=== PATIENT | female | born 1955 | race Caucasian/White ===

== ENCOUNTER → 2018-04-16 15:59 | Outpatient (CLI) | payer BC, SELFPAY ==
--- NOTE | 2018-04-16 16:01 | MM_ITS ---
MM Dig screening mamm BI w/CAD ORDERING PHYSICIAN : Joshua Branch MD PATIENT AGE: 62 years GENDER: Female COMPARISON: November 2011, July 2010, February 2009 digital bilateral mammograms as well as June 2004 and February 2009 film screen mammograms. INDICATION: ITS.REASON: Routine Screening Mammogram Taking estrogen. No new complaints. Family history. Sister with breast cancer age 54 TECHNIQUE: Standard CC and MLO images were obtained. Additional axillary cc views bilateral R2 CAD reviewed. FINDINGS: Areas of dense breast tissue is seen bilaterally most evident towards superior breast and upper outer quadrant. This Pattern is similar to multiple previous studies with no discrete new areas of significant concern. No dominant mass RIGHT BREAST:No significant change.. LEFT BREAST:No discrete new findings of significant concern. Asymmetric density at the medial left breast stable . Other areas asymmetric density appear similar to previous studies back to 2008 Follow follow-up in one year recommended IMPRESSION: Areas of dense breast tissue, bilaterally which decreased to mammography But but no new areas of significant concern on today's screening mammogram Bilateral follow-up in one year recommended... And should be emphasized/encouraged Self breast examination be encouraged. BI-RADS Category: 2 Benign Finding(s) RECOMMENDED FOLLOW-UP: 1YR 1 YEAR FOLLOW-UP (A letter has been sent to the patient regarding results of the study.)
== END ==
PROVIDERS: PCP Family Medicine; Visit Provider Nurse Practitioner Obstetrics & Gynecology
DX: Z12.31 Encounter for screening mammogram for malignant neoplasm of breast (principal)
CPT/HCPCS: 77067

== ENCOUNTER → 2018-11-04 11:57 | Outpatient (CLI) | payer BC, SELFPAY ==
--- NOTE | 2018-11-04 12:20 | XR_ITS ---
XR chest 2V HISTORY: Cough and fever ITS.REASON: BRONCHITIS ORDERING PHYSICIAN: Zoraida Pearce PATIENT AGE: 63 years COMPARISON: None FINDINGS: The cardiomediastinal silhouette and pulmonary vascularity are within normal limits. The lungs are clear without infiltrates, suspicious nodules, or pleural effusions. No acute bony abnormalities. IMPRESSION: Negative chest, no acute finding
[2018-12-26 10:10] LABS: Bordetella pertussis DNA Negative
[2018-12-26 10:11] LABS: Bordetella parapertussis DNA Negative
== END ==
PROVIDERS: Visit Provider Nurse Practitioner Family
DX: J40 Bronchitis, not specified as acute or chronic (principal)
CPT/HCPCS: 71046; 87798

== ENCOUNTER 2020-01-02 07:34 | Day surgery (SDC) | payer BC, SELFPAY ==
[2019-12-30 11:02] VITALS: BMI 25.1
[2020-01-02] VITALS (9 sets, daily range): BP systolic 120–172; BP diastolic 64–94; PULSE 62–104; RESP 18; TEMP 36.1–37; O2SAT 98–100
--- NOTE | 2020-01-02 08:08 | P.PN_ITS ---
[facility] Anesthesia Checklist - Patient Identification Patient Identification: Arm Band - Structural Data Admitted From: Home Planned Operative Procedure/s: ercp Consent for Planned Operative Procedure(s) Verified: Yes Verified Documents: Surgical Consent, History and Physical - NPO Status Verified Time NPO: 00:00 - Additional verifications Anesthesia Reactions: No - Airway Assessment C-Spine Mobility Assessed: Yes (mp2) TMJ Mobility Assessed: Yes Dentition: Good Dentition - Neurological Assessment Level of Consciousness: Awake, Alert - Anesthesia Plan Anesthesia Risk discussed: Yes Anesthesia Plan: Verified ASA Class: II Anesthesia Type: MAC [facility] History I have reviewed the patient's past medical history: Yes Medical History: Denies:: Anxiety, Cancer, Depression, Diabetes Mellitus Type 1, Diabetes Mellitus Type 2, Hyperlipidemia, Hypertension, Migraine, MRSA, Seizures *Have you ever received a pneumonia vaccine?: No *Have you received a flu vaccine this season?: No Other Medical History: Denies: Arthritis Anesthesia experience/problems:: nac Other Surgeries: Yes: Appendectomy, Cholecystectomy, Hysterectomy-Total, Tubal Ligation, Other Amputation: No Fractures: No - *Social History Smoking Status: Former smoker Alcohol Intake: current Alcohol Intake Frequency:: holidays/special occasions only Substance Use Type: denies use *Occupational Status:: employed *Travel in the last 8 weeks: None - Psychiatric History Pschychiatric History:: Denies:: Anxiety, Depression Family Hx:: Cancer, Diabetes, Heart Attack, Thyroid Disorder, Stroke, Hypertension, Hyperlipidemia, Asthma, Anemia, Coronary Artery Disease
--- NOTE | 2020-01-02 08:38 | FL_ITS ---
PROCEDURE: FL ERCP CLINICAL INDICATION: abdominal pain COMPARISON: No exams were available for comparison FINDINGS: Fluoroscopy time: 1 minutes 35 seconds. Limited images submitted from the ERCP shows contrast injected into the common bile duct which appears mildly dilated. Has been a prior cholecystectomy. No definite common bile duct stones. The pancreatic duct was not opacified. There is linear decreased density along the medial aspect of the distal common bile duct consistent with catheter/balloon the artifact IMPRESSION: Images from the ERCP show mild prominence of the common bile duct without obvious common duct stone Dictated by: Erich Antunez MD 01/13/2020 09:15 Electronically signed by Erich Antunez MD in [place] 01/13/2020 09:15
--- NOTE | 2020-01-02 09:14 | HMH.PROC ---
[facility] Procedure Note Procedure Note:: ERCP procedure Report: Endoscopic retrograde cholangiopancreatography with biliary sphincterotomy, balloon extraction and TTS balloon dilation Endoscopist: Gerardo Corral II, MD Referring Physician: Jose Carlos Lowery MD Date of Procedure: January 02, 2020 Equipment: Olympus 180 side viewing endoscope duodenoscope Sedation: MAC sedation Indication: Mrs. Mai is a 64-year-old female who is here for diagnostic/therapeutic ERCP. The patient has had recurrent epigastric abdominal pain with pressure, bloating, nausea and fullness. She reports early satiety. She also has had dysphagia and globus sensation. She does report hoarseness and scalding in the mouth. The patient did have an EGD with me in May 2017 and a subsequent ERCP in June 2017. Her EGD did show reactive gastropathy with bile reflux as well as esophageal dysmotility. She had cricopharyngeal spasm and had dilation. Her ERCP in June 2017 showed sphincter of Oddi dysfunction with some minor biliary sludge/minor choledocholithiasis. The patient did have biliary sphincterotomy. From that time on, her symptoms significantly improved and abated until more recently when she has had recurrence. The patient did previously have gallstone pancreatitis which preceded cholecystectomy for gallstones. Procedure: Prior to the procedure, a history and physical exam was performed, and patient's medications and allergies were reviewed. The risks, benefits and alternatives of the sedation and procedure were discussed with the patient. All questions were answered and informed consent was obtained. The patient was brought to the fluoroscopic radiology room. Patient identification and proposed procedure were verified by the physician and the nurse. The patient was placed in a swimmer's position between left lateral decubitus and prone position and the scope was passed under direct vision. Throughout the procedure, the patient's blood pressure, pulse, and oxygen saturations were monitored continuously. The ERCP was accomplished without difficulty. The patient tolerated the procedure well. Findings: The side-viewing duodenal scope was passed directly into the upper esophagus and advanced to the second portion of the duodenum. There was evidence of cricopharyngeal spasm and nonerosive GERD. The esophagus was dilated to 20 mm/60 [place] with a TTS hydrostatic balloon. There was bile reflux with linear reactive gastropathy of the antrum. The duodenum was normal. The ampulla was well visualized and the common bile duct was selectively cannulated with the guidewire and sphincterotome. The cholangiogram did show a 8 to 9 mm common bile duct with normal filling of the intrahepatic biliary system. There was 1 distal filling defect that was possibly an air bubble/pneumobilia. There was delayed drainage of contrast from the biliary system. Extension of the biliary sphincterotomy was performed. There was then bile and contrast extravasation from the ampulla. Next, a 9 to 12 mm sweeping balloon was placed at the hilum and swept through the biliary system twice with the passage of [place] bile and a minor amount of sludge/debris. The pancreatic duct was not cannulated intentionally. Impression: 1. Recurrent sphincter of Oddi dysfunction with minimal choledocholithiasis/minor sludge status post extension of biliary sphincterotomy and balloon sweep 2. Bile reflux with mild linear reactive gastropathy 3. 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 I would recommend treatment for visceral sensitivity with buspirone. I may also consider dietary measures, Xifaxan or fiber bowel regimen.
== END 2020-01-02 10:45 | disposition home or self-care (01) ==
PROVIDERS: PCP Family Medicine; Visit Provider Internal Medicine Gastroenterology
PROC: (CPT 43264; principal; 2020-01-02 08:30)
DX: K22.4 Dyskinesia of esophagus (principal); K21.9 Gastro-esophageal reflux disease without esophagitis; K80.50 Calculus of bile duct without cholangitis or cholecystitis without obstruction
CPT/HCPCS: 43264; 43262; 43249; 74330; C1726; Q9967

== ENCOUNTER → 2021-04-28 15:14 | Outpatient (CLI) | payer MEDICARE, BC, SELFPAY ==
[2021-04-28 16:07] LABS: Basophils % 0.7 % (0.1-2.0); Eosinophils # 0.1 K/mm3 (0.0-0.4); Eosinophils % 1.4 % (0.1-12.0); Lymphocytes # 1.7 K/mm3 (0.7-4.5); Lymphocytes % 32.5 % (10-50); Mean Corpuscular HGB Conc 35.6 g/dL (31.8-35.4); Mean Corpuscular Hemoglobin 30.8 pg (27.0-31.2); Mean Corpuscular Volume 86.3 fl (81-99); Mean Platelet Volume 8.3 fl (7.4-10.4); Monocytes # 0.3 K/mm3 (0.1-1.0); Monocytes % 5.7 % (1.7-9.3); Neutrophils # 3.1 K/mm3 (1.8-7.8); Neutrophils % 59.7 % (37.0-80.0); Platelet Count 259 K/mm3 (142-424); Red Blood Count 4.87 M/mm3 (4.20-5.40); Red Cell Distribution Width 13.1 % (11.5-17.5); White Blood Count 5.2 K/mm3 (4.8-10.8)
[2021-04-28 17:33] LABS: Erythrocyte Sedimentation Rate 14 mm/hr (0-30)
== END ==
PROVIDERS: PCP Family Medicine; Visit Provider Physician Assistant
DX: Z20.822 Contact with and (suspected) exposure to COVID-19 (principal); U07.1 COVID-19
CPT/HCPCS: 36415; 85025; 85651; U0003

== ENCOUNTER → 2021-05-11 15:13 | Outpatient (CLI) | payer MEDICARE, BC, SELFPAY ==
[2021-05-11 15:46] LABS: Basophils # 0.1 K/mm3 (0-0.2); Basophils % 0.7 % (0.1-2.0); Eosinophils # 0.1 K/mm3 (0.0-0.4); Eosinophils % 1.6 % (0.1-12.0); Hematocrit 44.2 % (37.0-47.0); Hemoglobin 15.1 g/dL (12.2-16.2); Lymphocytes # 1.8 K/mm3 (0.7-4.5); Lymphocytes % 23.9 % (10-50); Mean Corpuscular HGB Conc 34.2 g/dL (31.8-35.4); Mean Corpuscular Hemoglobin 31.7 pg (27.0-31.2); Mean Corpuscular Volume 92.6 fl (81-99); Mean Platelet Volume 8.4 fl (7.4-10.4); Monocytes # 0.4 K/mm3 (0.1-1.0); Monocytes % 5.6 % (1.7-9.3); Neutrophils # 5.1 K/mm3 (1.8-7.8); Platelet Count 282 K/mm3 (142-424); Red Blood Count 4.77 M/mm3 (4.20-5.40); Red Cell Distribution Width 12.9 % (11.5-17.5); White Blood Count 7.6 K/mm3 (4.8-10.8)
== END ==
PROVIDERS: PCP Nurse Practitioner Family; Visit Provider Nurse Practitioner Family
DX: Z20.822 Contact with and (suspected) exposure to COVID-19 (principal)
CPT/HCPCS: 85025

== ENCOUNTER → 2021-11-16 16:25 | Outpatient (CLI) | payer MEDICARE, BC, SELFPAY ==
[2021-11-16 17:43] LABS: Blood Urea Nitrogen 29 mg/dl (7-17); Estimated Glomerular Filt Rate 55 ml/min (>60); GFR (African American) 67 ML/MIN (>60)
== END ==
PROVIDERS: Visit Provider Family Medicine
DX: Z01.812 Encounter for preprocedural laboratory examination (principal); K76.9 Liver disease, unspecified
CPT/HCPCS: 36415; 82565; 84520

== ENCOUNTER → 2021-11-17 08:04 | Outpatient (CLI) | payer MEDICARE, BC, SELFPAY ==
--- NOTE | 2021-11-17 08:10 | CT_ITS ---
FINAL REPORT TECHNIQUE: Axial CT images of the abdomen and pelvis were obtained before and after the administration of IV contrast. Oral contrast was administered.This study was performed with techniques to keep radiation doses as low as reasonably achievable (ALARA). Individualized dose reduction techniques using automated exposure control or adjustment of mA and/or kV according to the patient''s size were employed. CLINICAL HISTORY: LIVER LESION COMPARISON: May 30, 2017 FINDINGS: Abdomen: There is mild right lung base atelectasis. The heart is normal in size. The less than 1 cm mass in the lateral right liver dome from the prior exam is not seen today. No liver mass is identified. There are postoperative changes from cholecystectomy. There is mild biliary ductal dilatation which may be due to post cholecystectomy change. . The spleen is unremarkable. No adrenal masses present. The pancreas has an unremarkable appearance. The kidneys enhance normally. The aorta is normal in caliber. There is no free fluid or adenopathy. No mass or abnormal fluid collection is seen. Precontrast images demonstrate no evidence of nephrolithiasis. Pelvis: The appendix is not visualized. The urinary bladder is unremarkable. No inflammatory process is seen. There is no evidence of mass or adenopathy. There is no evidence of bowel obstruction. There is a moderate amount of retained stool. There are postoperative changes from hysterectomy. IMPRESSION: Previously identified right liver dome mass is not identified today. Reviewed, Interpreted and Dictated by Kristian Kennedy III, MD Transcribed by Jennifer Hutchison Authenticated by Kristian Kennedy III, MD on 11/17/2021 10:26:28 AM [facility]
== END ==
PROVIDERS: PCP Nurse Practitioner Family; Visit Provider Family Medicine
DX: K76.9 Liver disease, unspecified (principal)
CPT/HCPCS: 74178; Q9967

== ENCOUNTER → 2023-06-22 14:41 | Outpatient (CLI) | payer MEDICARE, BC, SELFPAY | PROVIDERS: PCP Family Medicine; Visit Provider Internal Medicine Gastroenterology | DX: K52.9 Noninfective gastroenteritis and colitis, unspecified (principal); R14.0 Abdominal distension (gaseous); R15.2 Fecal urgency; R15.9 Full incontinence of feces ==

== ENCOUNTER → 2023-06-25 12:55 | Outpatient (CLI) | payer MEDICARE, BC, SELFPAY ==
[2023-07-02 13:20] LABS: Pancreatic Elastase, Fecal 70 (>200)
== END ==
PROVIDERS: PCP Family Medicine; Visit Provider Internal Medicine Gastroenterology
DX: K52.9 Noninfective gastroenteritis and colitis, unspecified (principal); R14.0 Abdominal distension (gaseous); R15.2 Fecal urgency; R15.9 Full incontinence of feces
CPT/HCPCS: 82656

== ENCOUNTER → 2023-07-09 16:00 | Outpatient (CLI) | payer MEDICARE, BC, SELFPAY ==
--- NOTE | 2023-07-09 16:00 | MM_ITS ---
PROCEDURE INFORMATION: Exam: MG Bilateral Screening 3D Mammography Exam date and time: 07/09/2023 3:50 PM Age: 68 years old Clinical indication: Screening examination TECHNIQUE: Imaging protocol: Bilateral Screening tomosynthesis and 2D mammography including computer-aided detection (CAD) when performed. COMPARISON: 1. MG SCBI MM Dig screening mamm BI w/CAD 04/16/2018 4:11 PM 2. MG DMSB DIGITAL MAMM-SCREEN BILATERAL 11/10/2011 10:03 AM FINDINGS: MAMMOGRAPHY: Breast composition: The breasts are heterogeneously dense, which may obscure small masses. Mass: None. Architectural distortion: None. Calcifications: No suspicious calcifications. Asymmetric density: None. Skin thickening: None. Axillary adenopathy: None. IMPRESSION: No mammographic evidence of malignancy. Annual screening is recommended unless otherwise clinically indicated. ASSESSMENT: BI-RADS Category 1: Negative
== END ==
PROVIDERS: PCP Family Medicine; Visit Provider Nurse Practitioner Obstetrics & Gynecology
DX: Z12.31 Encounter for screening mammogram for malignant neoplasm of breast (principal)
CPT/HCPCS: 77063; 77067

== ENCOUNTER 2023-10-16 12:11 | Outpatient (CLI) | payer MEDICARE, BC, SELFPAY ==
[2023-10-16 12:17] LABS: Adenovirus F 40/41, stool Not Detected (NotDetected); Astrovirus Not Detected (NotDetected); Campylobacter Not Detected (NotDetected); Clostridium Difficile A/B, PCR Not Detected (NotDetected); Cryptosporidium Not Detected (NotDetected); Cyclospora Cayetanesis Not Detected (NotDetected); Entamoeba histolytica Not Detected (NotDetected); Enteroaggregative E coli Not Detected (NotDetected); Enteropathogenic E coli Not Detected (NotDetected); Enterotoxigenic E coli Not Detected (NotDetected); Giardia lamblia Not Detected (NotDetected); Norovirus Not Detected (NotDetected); Plesimonas Shigalloides, PCR Not Detected (NotDetected); Rotavirus A Not Detected (NotDetected); Salmonella, PCR Not Detected (NotDetected); Sapovirus Not Detected (NotDetected); Shiga-like toxin E coli Not Detected (NotDetected); Shigella Enterovasive E coli Not Detected (NotDetected); Vibrio Cholerae Not Detected (NotDetected); Vibrio, PCR Not Detected (NotDetected); Yersinia Entercolitica, PCR Not Detected (NotDetected)
== END 2023-10-16 23:59 ==
LOC: LAB 12:12
PROVIDERS: PCP Family Medicine; Visit Provider Nurse Practitioner Family
DX: R19.7 Diarrhea, unspecified (principal); R14.0 Abdominal distension (gaseous)
CPT/HCPCS: 87506

== ENCOUNTER 2024-06-03 09:30 | Outpatient (POV) | payer MEDICARE, BC, SELFPAY | END 2024-06-03 23:59 | disposition home or self-care (01) | LOC: SC 09:31 | PROVIDERS: Visit Provider Dermatology | DX: Z00.00 Encounter for general adult medical examination without abnormal findings (principal) ==

== ENCOUNTER 2024-10-20 10:28 | Day surgery (SDC) | payer MEDICARE, BC, SELFPAY ==
[2024-10-20 11:04] VITALS: BP 137/69; PULSE 57; RESP 18; TEMP 36.7; O2SAT 98
[2024-10-20 11:11] VITALS: BMI 24.7
[2024-10-20] MEDS: LACTATED RINGERS 1000ML 1,000 ML 50 ML IV (11:14)
--- NOTE | 2024-10-20 11:30 | P.PNANES_ITS ---
[facility] Disclaimer: The information contained in this section may have been updated after the patient was seen, as this information can be updated by other users. Medical History Hypertension Exocrine pancreatic insufficiency Colitis Hot flashes, menopausal Surgical History History of back surgery History of cholecystectomy H/O: hysterectomy Family History Sister Cancer Mother Osteoporosis Grandmother Osteoporosis Other Family history of COPD (chronic obstructive pulmonary disease) Social History (Updated 10/20/24 @ 11:09 by Ruma Macedo RN) Smoking Status: Former smoker alcohol intake: current alcohol intake frequency: holidays/special occasions only substance use type: denies use current occupational status: employed and retired Travel in the last 8 weeks: None caffeine: Yes Have you lived/traveled outside US in past 30 days?: No Contact w/someone who lives/traveled outside US past 30 days?: No Exposure to someone with infectious disease in past 14 days?: No Do you have a fever (greater than 100.4 F or 38 C)?: No Have you tested positive for COVID-19: Yes Exposed to someone with COVID-19 in past 14 days?: No Do you have a sore throat?: No Do you have a cough?: No Do you have any weakness?: No Are you experiencing any nausea/vomitting?: No Do you have any diarrhea?: No Are you experiencing any unusual bleeding?: No Do you have any muscle aches/pain?: No Do you have any abdominal pain?: No Are you experiencing loss of taste or smell?: No [facility] Anesthesia Checklist Patient Identification Patient Identification: Arm Band Structural Data Admitted From: Home Planned Operative Procedure/s: EGD/Colonoscopy Consent for Planned Operative Procedure(s) Verified: Yes Verified Documents: Surgical Consent and History and Physical NPO Status Verified Time NPO: 04:00 (finished prep) Additional verifications Anesthesia Reactions: No Airway Assessment Mallampati Score:: Class II C-Spine Mobility Assessed: Yes TMJ Mobility Assessed: Yes Dentition: Good Dentition Neurological Assessment Level of Consciousness: Awake, Alert and Appropriate Anesthesia Plan Anesthesia Risk discussed: Yes Anesthesia Plan: Verified ASA Class: II Anesthesia Type: MAC
--- NOTE | 2024-10-20 13:04 | EXP.HP ---
History of Present Illness *Admission Date: 10/20/24 *Reason for visit:: Diarrhea *History of present illness: Mrs. Mai is a 69-year-old female with chronic diarrhea who is here for diagnostic colonoscopy. The examination is deemed medically necessary for diagnostic colonoscopy. The patient has been seen, interviewed and examined prior to the procedure by both myself and the anesthesia provider. [facility] Disclaimer: The information contained in this section may have been updated after the patient was seen, as this information can be updated by other users. Medical History Hypertension Exocrine pancreatic insufficiency Colitis Hot flashes, menopausal Surgical History History of back surgery History of cholecystectomy H/O: hysterectomy Family History Sister Cancer Mother Osteoporosis Grandmother Osteoporosis Other Family history of COPD (chronic obstructive pulmonary disease) Social History (Updated 10/20/24 @ 11:09 by Ruma Macedo RN) Smoking Status: Former smoker alcohol intake: current alcohol intake frequency: holidays/special occasions only substance use type: denies use current occupational status: employed and retired Travel in the last 8 weeks: None caffeine: Yes Have you lived/traveled outside US in past 30 days?: No Contact w/someone who lives/traveled outside US past 30 days?: No Exposure to someone with infectious disease in past 14 days?: No Do you have a fever (greater than 100.4 F or 38 C)?: No Have you tested positive for COVID-19: Yes Exposed to someone with COVID-19 in past 14 days?: No Do you have a sore throat?: No Do you have a cough?: No Do you have any weakness?: No Are you experiencing any nausea/vomitting?: No Do you have any diarrhea?: No Are you experiencing any unusual bleeding?: No Do you have any muscle aches/pain?: No Do you have any abdominal pain?: No Are you experiencing loss of taste or smell?: No Other Medical History Have you received the Flu Vaccine for this season: No Have you received the Pneumonia Vaccine: No Review of Systems Review of Systems Review of systems (narrative): Negative *Cardiovascular Comments: Negative *Gastrointestinal Comments: Negative *Genitourinary Comments: Negative *Musculoskeletal Comments: Negative *Neurologic Comments: Negative Meds Home Medications and Allergies Home Medications ?Medication ?Instructions ?Recorded ?Confirmed ?Type budesonide 3 mg 3 mg PO DAILY 07/23/23 10/20/24 History capsule,delayed,extended release [id number]-[id number]-hivpmtd 2 cap PO TID 07/23/23 10/20/24 History 36,000-114,000-180,000 unit capsule,delay rel (Creon) lisinopril 10 mg tablet 10 mg PO DAILY 07/23/23 10/20/24 History estradiol 1 mg tablet See Rx Instructions .Route 09/02/24 10/20/24 Rx .COMPLEX #90 tabs sodium,potassium,mag sulfates 17.5 See Rx Instructions PO .COMPLEX 10/08/24 10/20/24 Rx gram-3.13 gram-1.6 gram oral soln #354 mL (Suprep Bowel Prep Kit) New Prescriptions to Start Prescriptions: Allergies Allergy/AdvReac Type Severity Reaction Status Date / Time Penicillins (PENICILLINS) Allergy Severe Anaphylaxis Verified 10/20/24 11:03 phenobarbital (PHENOBARBITAL) Allergy Unknown Fainting Verified 10/20/24 11:03 Sulfa (Sulfonamide Allergy Unknown Rash Verified 10/20/24 11:03 Antibiotics) (SULFA (SULFONAMIDE ANTIBIOTICS)) Exam Data for Last 24 hours Vital signs and Labs for Last 24 Hours: Temp Pulse Resp BP Pulse Ox O2 Del Method 98.1 F 57 L 18 137/69 98 Room Air 10/20/24 11:04 10/20/24 11:04 10/20/24 11:04 10/20/24 11:04 10/20/24 11:04 10/20/24 11:04 I & O for Last 24 hours: Intake & Output 10/17/24 10/18/24 10/19/24 10/20/24 23:59 23:59 23:59 23:59 Weight 140 lb *Routine HEENT Exam Head: Present normocephalic Eye: Present EOMI and PERRL ENT: Present mucous membranes moist *Routine Neck Exam Neck: Present supple *Routine Respiratory Exam Respiratory: Present CTA bilaterally *Routine Cardiovascular Exam Cardiovascular: Present RRR *Routine Abdominal Exam Abdominal: Present soft and normoactive bowel sounds; Absent tenderness *Routine Rectal Exam Rectal:: deferred *Routine Genitalia Exam Genitalia:: deferred *Routine Extremities Exam Extremities: Absent cyanosis, clubbing or edema *Routine Skin Exam Skin: Present warm; Absent rash *Routine Neurological Exam Neurological: Present alert and oriented X3 Assessment and Plan *Assessment and plan (1) Chronic diarrhea: Status: Acute Category: Medical Code(s): K52.9 - Noninfective gastroenteritis and colitis, unspecified (2) Microscopic colitis: Status: Acute Category: Medical Code(s): K52.839 - Microscopic colitis, unspecified Plan A/P: 1. Chronic diarrhea?markedly worsened with change in bowel habits is the preprocedural diagnosis. The patient will be anesthetized/sedated using MAC sedation. The patient has been seen and examined. Cardiac and lung assessment prior to the examination is stable. Proceed with planned diagnostic colonoscopy
--- NOTE | 2024-10-20 13:06 | HMH.PROCNOTE ---
[facility] Procedure Note Date: 10/20/24 Time: 13:31 Procedure Note:: Colonoscopy Procedure Report: Colonoscopy with cold biopsies Endoscopist: Gerardo Corral II, MD Referring physician: Nick Rodriguez MD Date of Procedure: October 20, 2024 Equipment: Olympus 190 variable stiffness pediatric colonoscope Sedation: MAC sedation Indication: Mrs. Mai is a 69-year-old female who is a long-term patient here for diagnostic colonoscopy. The patient does have chronic diarrhea which is multifactorial. She does have EPI established by low fecal elastase levels. She was having 15-20 bowel movements daily and after addition of Creon, she is down to 2-3 bowel movements daily. She also had microscopic/lymphocytic colitis. She was placed on budesonide and this significantly helped. When we weaned off of the budesonide, her diarrhea returned and she is now on this as maintenance therapy. The patient still reports having daily watery and loose stools without form. She does get some epigastric abdominal pain. Most of her diarrhea is postprandial. She did have a reaction to amitriptyline in the past. When she saw me in the office in [place], her PCR testing and fecal calprotectin were normal. Her last colonoscopy was more than 5 years ago. She does have a grandmother with gastric cancer. She does get just a little gassiness and bloating. She reports no blood with her bowel movements but does note mucus. She does state that she was on an IBS drug years ago. She has had former cholecystectomy. Her bowel movements are often dark. She was recently evaluated in the office and had hypokalemia which was felt to be related to her diarrhea. Additionally, the patient does have a history of of sphincter of Oddi dysfunction and had ERCP with me in December 2019. Procedure: Prior to the procedure, a history and physical exam was performed, and patient's medications and allergies were reviewed. The risks, benefits and alternatives of the sedation and procedure were discussed with the patient. All questions were answered and informed consent was obtained. The patient was brought to the procedure room. Patient identification and proposed procedure were verified by the physician and the nurse. The patient was placed in a left lateral decubitus position and the scope was passed under direct vision. Throughout the procedure, the patient's blood pressure, pulse, and oxygen saturations were monitored continuously. The colonoscopy was accomplished without difficulty. The patient tolerated the procedure well. Findings: On digital rectal examination there was normal rectal tone. There were no external hemorrhoids. The colonoscope was introduced through the anal canal to the rectum and advanced to the cecum. The ileocecal valve and appendiceal orifice were identified. The scope was advanced a short distance into the ileum which appeared grossly normal. The scope was then withdrawn into the colon. The cecum, ascending, transverse, descending, sigmoid and rectum were grossly normal. There was a very mild reticular pattern to the mucosa lining but was otherwise normal. There were no mucosal abnormalities identified. Random biopsies were taken from the right and from the left colon to rule out microscopic/lymphocytic colitis. Upon retroflexion within the rectum there were grade 1-2 internal hemorrhoids. The preparation was excellent throughout with [place] Preparation Score of 9. The cecal time was 10 minutes. Impression: 1. Normal colonoscopy with intubation of the terminal ileum Plan: I will follow-up the biopsies. If there is still evidence of microscopic colitis, I would consider increasing budesonide dosage. If the biopsies are normal, I would even consider stopping budesonide. I am going to add colestipol at bedtime and tricyclic medication because of her visceral pain/spasm (for neuromodulation) and IBS diarrhea.
[2024-10-20 13:09] VITALS: O2SAT 98
--- NOTE | 2024-10-20 13:17 | P.PCN_ITS ---
[facility] Procedure Note Date: 10/20/24 Time: 13:17 Procedure Note:: Upper Endoscopy Procedure Report: Esophagogastroduodenoscopy with cold biopsies Endoscopost: Gerardo Corral II, MD Referring Physician: Nick Rodriguez MD Date of Procedure: October 20, 2024 Equipment: Olympus GIF 190 standard upper endoscope Sedation: MAC sedation Indications: Mrs. Mai is a 69-year-old female who is a long-term patient here for diagnostic upper endoscopy. She does have dyspepsia/epigastric abd ominal pain. Additionally, the patient does have a history of of sphincter of Oddi dysfunction and had ERCP with me in December 2019. She has chronic diarrhea. She does take Creon for EPI. Procedure: Prior to the procedure, a history and physical exam was performed, and patient's medications and allergies were reviewed. The risks, benefits and alternatives of the sedation and procedure were discussed with the patient. All questions were answered and informed consent was obtained. The patient was brought to the procedure room. Patient identification and proposed procedure were verified by the physician and the nurse. The patient was placed in a left lateral decubitus position and the scope was passed under direct vision. Throughout the procedure, the patient's blood pressure, pulse, and oxygen saturations were monitored continuously. The upper GI endoscopy was accomplished without difficulty. The patient tolerated the procedure well. Findings: The scope was passed directly into the upper esophagus and advanced to the third portion of the duodenum. The post bulbar duodenum and duodenal bulb were normal with normal mucosa and conniventes. The ampulla was normal in appearance. The scope was withdrawn through a normal duodenal bulb and pylorus into the stomach. There was moderate to marked bile reflux with mild to moderate linear reactive gastropathy of the antrum and body. There was some pylorospasm identified. Cold biopsies were taken from the antrum. Upon retroflexion there was a very small sliding 1 to 2 cm hiatal hernia. The scope was then withdrawn into the esophagus. There was no evidence of reflux esophagitis or Scott's. The remainder of the esophageal mucosa was normal. Impression: 1. Bile reflux with mild to moderate linear reactive gastropathy with mild pylorospasm Plan: I will follow-up the biopsies. I am going to place her on a bile acid sequestrant (colestipol) which should help with her diarrhea as well. I would also consider neuromodulation because of her visceral sensitivity/functional abdominal pain (i.e. pylorospasm). I will proceed with diagnostic colonoscopy.
[2024-10-20 13:38] VITALS: BP 108/53; PULSE 66; RESP 16; TEMP 36.5; O2SAT 97
[2024-10-20 13:48] VITALS: BP 107/54; PULSE 60; RESP 16; O2SAT 99
[2024-10-20 13:58] VITALS: BP 132/80; PULSE 62; RESP 18; O2SAT 100
[2024-10-20 14:08] VITALS: BP 148/69; PULSE 54; RESP 16; O2SAT 100
== END 2024-10-20 14:15 | disposition home or self-care (01) ==
PROVIDERS: PCP Family Medicine; Visit Provider Internal Medicine Gastroenterology
PROC: 0DJ08ZZ Inspection of Upper Intestinal Tract, Via Natural or Artificial Opening Endoscopic (ICD-10-PCS; CPT 45378; principal; 2024-10-20 12:30)
DX: R10.9 Unspecified abdominal pain (principal); K31.3 Pylorospasm, not elsewhere classified; K64.8 Other hemorrhoids; R10.13 Epigastric pain; K83.4 Spasm of sphincter of Oddi; K52.9 Noninfective gastroenteritis and colitis, unspecified; K44.9 Diaphragmatic hernia without obstruction or gangrene; K31.9 Disease of stomach and duodenum, unspecified
CPT/HCPCS: 43239; 45380; J7120

== ENCOUNTER 2025-02-10 10:09 | Outpatient (CLI) | payer MEDICARE, BC, SELFPAY ==
--- OUTSIDE RECORDS SUMMARY | 2025-02-10 10:12 | XMS_ITS ---
Author Organization Unknown Results OrderDate OrderTestName ResultName ResultDate Value Units Range AbnormalFlag ResultStatus ObservationNotes TestCode ResultCode DateRecorded AccessionNumber DiagnosticSectionCode DiagnosticSectionName Sequence Interpretation 07/21/2024 00:00:00 P-TSH TSH [id number]:00:00 2.07 mU/L 0.43- 5.25 - mU/L Reviewed Britney Pearce 07/22/2024 9:35:16 AM > I spoke with pt andreported results P-TSH 07/21/2024 00:00: 00:00:32F-SgugypCzogzi0652-83ElfikdIjkkkx7782-76-32B71:00:0015.8u/L 13.0-60.0 - u/LRevieweBritney Herrera 07/22/2024 11:28:24 AM > I spoke with pt and reported results Coding P-Lipase 07/21/2024 00:00:00109/20/2023 00:00:00P-Comprehensive Metabolic Panel (CMP)eGFR by Adhqnzuzen6583-81-53R68:00:0099mL/min/1.73m2>59 - mL/min/1.98s1Lifcizot Britney Pearce 07/22/2024 9:11:25 AM >no answer when phoned Britney Pearce 07/22/2024 9:34:16 AM > will start PO K+ which she has at home Coding P-Comprehensive Metabolic Pa katelynn (CMP) 07/21/2024 00:00:00109/20/2023 00:00:00P-Comprehensive Metabolic Panel (CMP) Dzzxxpn0297-77-18Y54:00:006.2g/dL6.0-8.3 - g/dLReBritney Andino 07/22/2024 9:11:25 AM >no answer when phoned Britney Pearce 07/22/2024 9:34: 16 AM > will start PO K+ which she has at home Coding P-Comprehensive Metabolic Pa katelynn (CMP) 07/21/2024 00:00:00109/20/2023 00:00:00P-Comprehensive Metabolic Panel (CMP) Yaoexz3272-18-06P63:00:95633thgg/Q854-057 - mmol/LRBritney Plaza 07/22/2024 9:11:25 AM >no answer when phoned Britney Pearce 07/22/2024 9:34: 16 AM > will start PO K+ which she has at home Coding P-Comprehensive Metabolic Pa katelynn (CMP) 07/21/2024 00:00:00109/20/2023 00:00:00P-Comprehensive Metabolic Panel (CMP) Ukuczbzee5487-81-46P47:00:003.3mmol/L3.5-5.3 - mmol/LLBritney Herndon 07/22/2024 9:11:25 AM >no answer when phoned Britney Pearce 07/22/2024 9:34: 16 AM > will start PO K+ which she has at home Coding P-Comprehensive Metabolic Pa katelynn (CMP) 07/21/2024 00:00:00109/20/2023 00:00:00P-Comprehensive Metabolic Panel (CMP) Ticxjpj4335-58-17W61:00:0081mg/dL65-99 - mg/dLBritney Herndon 07/22/2024 9:11:25 AM >no answer when phoned Britney Pearce 07/22/2024 9:34: 16 AM > will start PO K+ which she has at home Coding P-Comprehensive Metabolic Pa katelynn (CMP) 07/21/2024 00:00:00109/20/2023 00:00:00P-Comprehensive Metabolic Panel (CMP) Jowyvyfuyv8010-30-00X52:00:000.56mg/dL0.50-1.00 - mg/dLBritney Herndon 07/22/2024 9:11:25 AM >no answer when phoned Britney Pearce 07/22/2024 9:34: 16 AM > will start PO K+ which she has at home Coding P-Comprehensive Metabolic Pa katelynn (CMP) 07/21/2024 00:00:00109/20/2023 00:00:00P-Comprehensive Metabolic Panel (CMP)CO2 1800-46-64C71:00:0026mmol/L22-32 - mmol/LRBritney Plaza 07/22/2024 9:11:25 AM >no answer when phoned Britney Pearce 07/22/2024 9:34:16 AM > will start PO K+ which she has at home Coding P-Comprehensive Metabolic Pa katelynn (CMP) 07/21/2024 00:00:00109/20/2023 00:00:00P-Comprehensive Metabolic Panel (CMP) Ovqsyhig0994-54-22R54:00:57538umyr/L97-108 - mmol/LRBritney Plaza 07/22/2024 9:11:25 AM >no answer when phoned Britney Pearce 07/22/2024 9:34: 16 AM > will start PO K+ which she has at home Coding P-Comprehensive Metabolic Pa katelynn (CMP) 07/21/2024 00:00:00109/20/2023 00:00:00P-Comprehensive Metabolic Panel (CMP) Ysbzjnv8928-81-47M94:00:008.8mg/dL8.6-10.4 - mg/dLReBritney Andino 07/22/2024 9:11:25 AM >no answer when phoned Britney Pearce 07/22/2024 9:34: 16 AM > will start PO K+ which she has at home Coding P-Comprehensive Metabolic Pa katelynn (CMP) 07/21/2024 00:00:00109/20/2023 00:00:00P-Comprehensive Metabolic Panel (CMP)BUN 8273-37-33T75:00:0010mg/dL8-23 - mg/dLReBritney Andino 07/22/2024 9:11:25 AM >no answer when phoned Britney Pearce 07/22/2024 9:34:16 AM > will start PO K+ which she has at home Coding P-Comprehensive Metabolic Pa katelynn (CMP) 07/21/2024 00:00:00109/20/2023 00:00:00P-Comprehensive Metabolic Panel (CMP) Bilirubin, Jdoxf2608-20-74O85:00:000.4mg/dL<0.2-1.2 - mg/dLReviewed Britney Pearce 07/22/2024 9:11:25 AM >no answer when phoned Britney Pearce 07/22/2024 9:34:16 AM > will start PO K+ which she has at home Coding P-Comprehensive Metabolic Pa katelynn (CMP) 07/21/2024 00:00:00109/20/2023 00:00:00P-Comprehensive Metabolic Panel (CMP)AST (SGOT)9650-76-80D72:00:0011IU/L<5-40 - IU/LRevieBritney Garcia 07/22/2024 9:11:25 AM >no answer when phoned Britney Pearce 07/22/2024 9:34:16 AM > will start PO K+ which she has at home Coding P-Comprehensive Metabolic Pa katelynn (CMP) 07/21/2024 00:00:00109/20/2023 00:00:00P-Comprehensive Metabolic Panel (CMP)ALT (SGPT)7454-69-15N74:00:0012IU/L<5-47 - IU/LRevBritney Bell 07/22/2024 9:11:25 AM >no answer when phoned Britney Pearce 07/22/2024 9:34:16 AM > will start PO K+ which she has at home Coding P-Comprehensive Metabolic Pa katelynn (CMP) 07/21/2024 00:00:00109/20/2023 00:00:00P-Comprehensive Metabolic Panel (CMP) Alkaline Hmpjpikkkjr4053-52-89T14:00:0055IU/L35-121 - IU/LRevBritney New 07/22/2024 9:11:25 AM >no answer when phoned Griselda Pearceine 07/22/2024 9:34:16 AM > will start PO K+ which she has at home Coding P-Comprehensive Metabolic Pa katelynn (CMP) 07/21/2024 00:00:00109/20/2023 00:00:00P-Comprehensive Metabolic Panel (CMP) Fjktruv6906-94-28F21:00:004.0g/dL3.5-5.3 - g/dLReGonzaloLinnea resendizharine 07/22/2024 9:11:25 AM >no answer when phoned Linnea Pearceharine 07/22/2024 9:34: 16 AM > will start PO K+ which she has at home Coding P-Comprehensive Metabolic Pa katelynn (CMP) 07/21/2024 00:00:00109/20/2023 00:00:00P-Comprehensive Metabolic Panel (CMP)A/G Ubgar5545-96-72X70:00:001.81.1-2.5 -KatrinaBritney 07/22/2024 9:11:25 AM >no answer when phoned Linnea Pearceharine 07/22/2024 9:34:16 AM > will start PO K+ which she has at home Coding P-Comprehensive Metabolic Pa katelynn (CMP) 07/21/2024 00:00:00109/20/2023 00:00:02L-AvgwhflYtweqdv9490-69XifpagiScbacut7826-01-79D31:00:0037U/L 28-100 - U/LRevieweNuriaLinnea barbaBritney 07/22/2024 9:34:57 AM > I spoke with pt and reported results Coding P-Amylase 07/21/2024 00:00:00109/20/2023 00:00:00CBC Venipuncture (in house)tre 8077-31-23Q56:00:62618621 - 400ReLuz Elena Amras 07/21/2024 12:30:28 PM > , Provider reviewed results while patient in office.PortiaBritney 07/21/2024 3:07:22 PM > Coding CBC Venipuncture (in house) 07/21/2024 00:00:00109/20/2023 00:00:00CBC Venipuncture (in house)[facility] 6544-69-99K70:00:0033.631 - 38ReviewedKing,[facility] 07/21/2024 12:30:28 PM > , Provider reviewed results while patient in office.Britney Pearce 07/21/2024 3:07:22 PM > Coding CBC Venipuncture (in house) 07/21/2024 00:00:00109/20/2023 00:00:00CBC Venipuncture (in house)[facility] 6442-31-64T11:00:0030.625 - 35ReviewedKvan,[facility] 07/21/2024 12:30:28 PM > , Provider reviewed results while patient in office.Britney Pearce 07/21/2024 3:07:22 PM > Coding CBC Venipuncture (in house) 07/21/2024 00:00:00109/20/2023 00:00:00CBC Venipuncture (in house)mcv 0068-09-99Q39:00:0091.275 - 100RevieweEleno,[facility] 07/21/2024 12:30:28 PM > , Provider reviewed results while patient in office.Britney Pearce 07/21/2024 3:07:22 PM > Coding CBC Venipuncture (in house) 07/21/2024 00:00:00109/20/2023 00:00:00CBC Venipuncture (in house)[facility] 4934-30-48F59:00:0042.835 - 55RevieweEleno,[facility] 07/21/2024 12:30:28 PM > , Provider reviewed results while patient in office.Britney Pearce 07/21/2024 3:07:22 PM > Coding CBC Venipuncture (in house) 07/21/2024 00:00:00109/20/2023 00:00:00CBC Venipuncture (in house)hgb 4330-02-46Y68:00:0014.411.5 - 16.5RevieweEleno,[facility] 07/21/2024 12:30:28 PM > , Provider reviewed results while patient in office.Britney Pearce 07/21/2024 3:07:22 PM > Coding CBC Venipuncture (in house) 07/21/2024 00:00:00109/20/2023 00:00:00CBC Venipuncture (in house)rbc 7956-48-00X38:00:004.693.5 - 5.5ReviewedKing,Luz Elena 07/21/2024 12:30:28 PM > , Provider reviewed results while patient in office.Britney Pearce 07/21/2024 3:07:22 PM > Coding CBC Venipuncture (in house) 07/21/2024 00:00:00109/20/2023 00:00:00CBC Venipuncture (in house)gran 7087-39-98U63:00:0068.8%35 - 80ReviewedKing,[facility] 07/21/2024 12:30:28 PM > , Provider reviewed results while patient in office.Britney Pearce 07/21/2024 3:07:22 PM > Coding CBC Venipuncture (in house) 07/21/2024 00:00:00109/20/2023 00:00:00CBC Venipuncture (in house)mid 7512-62-40N32:00:006.1%2 - 15ReviewedKing,Luz Elena 07/21/2024 12:30:28 PM > , Provider reviewed results while patient in office.Britney Pearce 07/21/2024 3:07:22 PM > Coding CBC Venipuncture (in house) 07/21/2024 00:00:00109/20/2023 00:00:00CBC Venipuncture (in house)lymph 8835-35-22Z38:00:0025.1%15 - 50ReviewedKing,[facility] 07/21/2024 12:30:28 PM > , Provider reviewed results while patient in office.Britney Pearce 07/21/2024 3:07:22 PM > Coding CBC Venipuncture (in house) 07/21/2024 00:00:00109/20/2023 00:00:00CBC Venipuncture (in house)wbc 2111-90-09Q04:00:006.43.5 - 10ReviewedKing,Luz Elena 07/21/2024 12:30:28 PM > , Provider reviewed results while patient in office.Britney Pearce 07/21/2024 3:07:22 PM > Coding CBC Venipuncture (in house) 07/21/2024 00:00: 00:00:00CBC Venipuncture (in house)[facility] 6052-19-08C45:00:27139635 - 400ReLong Jenni 01/05/2025 12:59:43 PM >Britney Pearce 01/05/2025 01:56:04 PM >reviewed Coding CBC Venipuncture (in house) 01/05/2025 00:00: 00:00:00CBC Venipuncture (in house)[facility] 9176-29-14A95:00:0034.531 - 38ReLong Jenni 01/05/2025 12:59:43 PM >Britney Pearce 01/05/2025 01:56:04 PM >reviewed Coding CBC Venipuncture (in house) 01/05/2025 00:00: 00:00:00CBC Venipuncture (in house)[facility] 3845-79-50Q82:00:0031.025 - 35ReJenni Alves 01/05/2025 12:59:43 PM >Britney Pearce 01/05/2025 01:56:04 PM >reviewed Coding CBC Venipuncture (in house) 01/05/2025 00:00: 00:00:00CBC Venipuncture (in house)[facility] 5748-90-92D84:00:0090.075 - 100ReLong Jenni 01/05/2025 12:59:43 PM >Britney Pearce 01/05/2025 01:56:04 PM >reviewed Coding CBC Venipuncture (in house) 01/05/2025 00:00: 00:00:00CBC Venipuncture (in house)[facility] 2798-12-67G80:00:0039.735 - 55ReLong Jenni 01/05/2025 12:59:43 PM >Britney Pearce 01/05/2025 01:56:04 PM >reviewed Coding CBC Venipuncture (in house) 01/05/2025 00:00: 00:00:00CBC Venipuncture (in house)hgb 8694-26-57B97:00:0013.711.[facility] 01/05/[facility]25 12:59:43 PM >Britney Pearce 01/05/2025 01:56:04 PM >reviewed Coding CBC Venipuncture (in house) 01/05/2025 00:00: 00:00:00CBC Venipuncture (in house)[facility] 5268-65-60A50:00:004.413.5 - 5.5[facility] 01/05/2025 12:59:43 PM >Britney Pearce 01/05/2025 01:56:04 PM >reviewed Coding CBC Venipuncture (in house) 01/05/2025 00:00: 00:00:00CBC Venipuncture (in house)[facility] 4459-44-48B52:00:0064.735 - 80[facility] 01/05/2025 12:59:43 PM >Britney Pearce 01/05/2025 01:56:04 PM >reviewed Coding CBC Venipuncture (in house) 01/05/2025 00:00: 00:00:00CBC Venipuncture (in house)[facility] 5359-22-19Y64:00:007.72 - 15[facility] 01/05/2025 12:59:43 PM >Britney Pearce 01/05/2025 01:56:04 PM >reviewed Coding CBC Venipuncture (in house) 01/05/2025 00:00: 00:00:00CBC Venipuncture (in house)[facility] 9978-38-96S52:00:0027.615 - 50[facility] 01/05/2025 12:59:43 PM >Britney Pearce 01/05/2025 01:56:04 PM >reviewed Coding CBC Venipuncture (in house) 01/05/2025 00:00: 00:00:00CBC Venipuncture (in house)wbc 6662-74-44C22:00:004.23.5 - 10RevieweJenni Alvarado 01/05/2025 12:59:43 PM >Britney Pearce 01/05/2025 01:56:04 PM >reviewed Coding CBC Venipuncture (in house) 01/05/2025 00:00: 00:00:00P-Lyme Disease (B. burgodorferi), IgG/IgM, PAUL, SerumB burgdorferi (Lyme Disease) CdI0488-24-54T73:00:00NegativeNegative -Britney Russell 01/07/2025 01:25:28 PM >no answer when phoneBritney Herrera 01/12/2025 09:32:07 AM >left phone message for return Radha Britney 01/23/2025 02:53:52 PM >no answer when phoned Coding P-Lyme Disease (B. burgodorf edu), IgG/IgM, PAUL, Serum 01/05/2025 00:00: 00:00:00P-Lyme Disease (B. burgodorferi), IgG/IgM, PAUL, SerumB burgdorferi (Lyme Disease) ZwO4952-77-89Q01:00:00NegativeNegative -Britney Russell 01/07/2025 01:25:28 PM >no answer when phoneBritney Herrera 01/12/2025 09:32:07 AM >left phone message for return Theresaaye Britney 01/23/2025 02:53:52 PM >no answer when phoned Coding P-Lyme Disease (B. burgodorf edu), IgG/IgM, PAUL, Serum 01/05/2025 00:00:00
--- NOTE | 2025-02-10 10:13 | XR_ITS ---
FINAL REPORT CLINICAL HISTORY: PAIN COMPARISON: None FINDINGS: AP, lateral and oblique views of the right knee were obtained. There is no prior exam for comparison. There is no acute osseous abnormality of the right knee. There is mild degenerative joint disease present. The soft tissues are normal. There is no joint effusion. IMPRESSION: Mild degenerative joint disease, with no acute osseous abnormality of the right knee. Reviewed, Interpreted and Dictated by Yvette Hayes MD Transcribed by Sonia Presley Authenticated and [facility]
--- NOTE | 2025-02-10 10:13 | XR_ITS ---
FINAL REPORT CLINICAL HISTORY: bilat hand pain FINDINGS: LEFT HAND Three views demonstrate no acute fracture or dislocation. Calcification is seen along the dorsal aspect of the second DIP joint which is likely chronic. There is mild degenerative joint disease, most pronounced at the first CMC. The visualized joint spaces are normally aligned. There is no mineralization. No evidence of bony erosion is seen. The soft tissues are unremarkable. IMPRESSION: No acute process. Reviewed, Interpreted and Dictated by Yvette Hayes MD Transcribed by Josie Davidson Authenticated and [facility]
--- NOTE | 2025-02-10 10:13 | XR_ITS ---
FINAL REPORT CLINICAL HISTORY: bilat hand pain FINDINGS: RIGHT HAND Three views demonstrate no acute fracture or dislocation. There is multijoint degenerative disease, most pronounced at the DIP joints of the 2nd and 3rd fingers. There is normal mineralization. No evidence of bony erosion. The soft tissues are unremarkable. IMPRESSION: No acute bony abnormality. Reviewed, Interpreted and Dictated by Yvette Hayes MD Transcribed by Josie Davidson Authenticated and [facility]
== END 2025-02-10 23:59 | disposition home or self-care (01) ==
LOC: RAD 10:11
PROVIDERS: PCP Nurse Practitioner Family; Visit Provider Nurse Practitioner Family
DX: M17.11 Unilateral primary osteoarthritis, right knee (principal); M19.042 Primary osteoarthritis, left hand; M19.041 Primary osteoarthritis, right hand
CPT/HCPCS: 73130; 73562

== ENCOUNTER 2025-02-24 09:07 | Outpatient (CLI) | payer MEDICARE, BC, SELFPAY ==
--- OUTSIDE RECORDS SUMMARY | 2025-01-05 06:45 | XMS_ITS ---
Author Organization [facility] Address [address] [facility] [address] [place] [id number] Care Team Providers Care Knockup Worker Name Role Phone Aliyah Rodriguez Primary Care Provider DorianMonqiue Unavailable [phone] Britney Pearce Unavailable [phone] Allergies Allergen (clinical drug ingredient) Drug/Non Drug Allergy documented on EMR Reaction Allergy Type Onset Date Status phenobarbital PHENobarbital Unknown Drug Allergy Active Substance with penicillin structure and antibacterial mechanism of action (substance) Penicillins Unknown Drug Allergy Active Substance with sulfonamide structure and antibacterial mechanism of action (substance) Sulfa Antibiotics Unknown Drug Allergy Active Results Component Value Reference Range Notes CBC Venipuncture (in house) Reviewed date:01/05/2025 01:56:13 PM Interpretation: Performing Lab: Notes/Report: wbc 4.2 3.5 - 10 lymph 27.6 15 - 50 mid 7.7 2 - 15 gran 64.7 35 - 80 rbc 4.41 3.5 - 5.5 hgb 13.7 11.5 - 16.5 hct 39.7 35 - 55 mcv 90.0 75 - 100 mch 31.0 25 - 35 mchc 34.5 31 - 38 platlet 231 100 - 400 P-Lyme Disease (B. odilon germaini), IgG/IgM, PAUL, Serum Reviewed date:02/11/2025 07:16:06 AM Interpretation:negative Performing Lab: Notes/Report: Test performed by [facility] [address] [place] [address] , [address], [place] [address] Raymundo Giordano MD, Computing Architect CLIA: [id number] B burgdorferi (Lyme Disease) IgG Negative Negative B burgdorferi (Lyme Disease) IgM Negative Negative REASON FOR VISIT tick bite Medications Medication SIG (Take, Route, Frequency, Duration) Notes Start Date End Date Status Diflucan 150 MG 1 tablet Orally qd f or 1 days 01/05/2025 Active Creon 56257-607771 UNIT as directed Orally Active Doxycycline Hyclate 100 MG 1 capsule Ora lly Twice a day for 14 days 01/05/2025 Active Estradiol 1 MG 1 tablet Orally Once a day for 30 day(s) Active Vital Signs Blood pressure systolic 120 mm Hg 01/06/20 25 Blood pressure diastolic 70 mm Hg 025 Heart Rate 62 /min 01/05/2025 Height 63 in 01/05/2025 Weight 143 lbs 01/05/2025 BMI 25.33 kg/m2 01/05/2025 Encounters Encounter Location Date Provider Diagnosis [facility] [address] [facility] [address] [place] [id number] 01/05/2025 Britney Portia Tick bite W57.XXXA ; Fever, unspecified R50.9 ; Polyarthralgia M25.50 and Nausea R11.0 Assessments Encounter Date Diagnosis (ICD Code) Assessment Notes Treatment Notes Treatment Clinical Notes Section Notes 01/05/2025 Tick bite (ICD-10 - W57.XXXA) 01/05/2025 Fever, unspecified (ICD-10 - R50.9) 01/05/2025 Polyarthralgia (ICD-10 - M25.50) 01/05/2025 Nausea (ICD-10 - R11.0) Plan Of Treatment Medication Medication Name Sig Start Date Stop Date Notes Diflucan 150 MG 1 tablet Orally qd for 1 days 01/05/2025 Doxycycline Hyclate 100 MG 1 capsule Ora lly Twice a day for 14 days 01/05/2025 Pending Test Test Name Order Date Lyme titre IgG 01/05/2025 Miscell Ref Lab Test 01/05/2025 Next Appt Details Follow Up: prn, Reason: Provider Name:Britney barba, 03/16/2025 11:30:00 AM, [address] [facility], [address], [place], [id number], Progress Notes * CARROLL HEADLEY:[birth year] (69 yo F)Acc No.[id number]:01/05/2025 Progress Notes Patient: KRYSTA LAM Provider: TERRANCE Garcia :1955 A ge:69 Y S ex:Female Date:01/05/2025 Address:[address] [place] [address] [address] , [facility], [id number] Pcp:Aliyah Rodriguez Subjective: * Chief Complaints: * 1 . Tick bite. * HPI: D ermatology: 69 year old female presents with c/o bug bites P t is here today with c/o a tick bite. Pt sts the bite is on her lower stomach area and sts she get a fever after gettihg the bite, but sts the bite does look better now; developed polyarthralgia with nausea, fever and feeling badly all over the next day; no URI symptems. * ROS: D ERMATOLOGY: no R kevin. n o H con. G ASTROENTEROLOGY: no N ausea. n o V omiting. n o D iarrhea.? U ROLOGY: no D ifficulty urinating. n o B lood in urine. * Medical History: H /o kidney stones, Back pain. * Surgical History: h ysterectomy abdominal , Cholecystectomy, post-op pancreatitis 1997, bladder tac , laparoscopy x6 , EGD, gastritis 2010, EGD, gastritis 2012. * Hospitalization/Major Diagno stic Procedure: p neumonia 12/10/06. * Family History: F ather: alive 77 yrs, [place] in 40. M other: alive 74 yrs. P aternal Grand Father: . P aternal Grand Mother: . M aternal Grand Father: . M aternal Grand Mother: . 1 brother(s) , 5 sister(s) . 2 son(s) , 2 daughter(s) . . * Social History: C URRENT TOBACCO USE S moking Status: Patient does NOT smoke. C affeine: yes, frequency:daily. Exercise: yes. Home smoke detector use: yes. Marital Status: . New since last visit: none. Occupation: yes. Past smoking status: no. Recreational drug use: no. Alcohol: No, Type: , Frequency: ,Years: , Determination:. Sexually active: yes. Travel ouside [place]: no. * Medications: Imer Correia [id number] UNIT Capsule Delayed Release Particles as directed Orally , Taking Estradiol 1 MG Tablet 1 tablet Orally Once a day , Medication List reviewed and reconciled with the patient * Allergies: P enicillins, Sulfa Antibiotics, PHENobarbital. Objective: * Vitals: W t: 143, Temp: 98.1, BP: 120/70, HR: 62, Nurse: [facility], Ht: 63, BMI:25.33. * Examination: G eneral Examination: General Appearance: N AD , appears healthy , alert , pleasant , well nourished and hydrated. HEENT: s clera and conjunctiva clear, PERRLA, TM's normal, translucent. Oral cavity: m ucosa moist and WNL , no erythema. Neck: s upple , no lymphadenopathy. Heart: R RR. Lungs: C TAB A&P. Abdomen: b owel sounds present , nontender , soft. Neurologic Exam: a lert and oriented. Extremities: n o leg edema. Genitalia: B ilateral shoddy inguinal LAD. Assessment: * Assessment: 1. F ever, unspecified - R50.9 (Primary) 2 . T ick bite - W57.XXXA ? 3 . P olyarthralgia - M25.50 4 . N ausea - R11.0 Plan: * Treatment: Value Reference Range B burgdorferi (Lyme Disease) IgG Negative Negative - * B burgdorferi (Lyme Disease) IgM Negative Negative - * Britney Pearce 01/07/2025 01:25:28 PM >no answer when Britney Fuller 01/12/2025 09:32:07 AM >left phone message for return Britney Garcia 01/23/2025 02:53:52 PM >no answer when Britney Fuller 02/10/2025 08:54:47 AM EDT > Provider reviewed results while patient in office. ?LAB: CBC Venipuncture (in house) (Collection Date & Time - 01/05/2025)* Value Reference Range w bc 4.2 3.5 - 10 * l ymph 27.6 15 - 50 * m id 7.7 2 - 15 * g ran 64.7 35 - 80 * r bc 4.41 3.5 - 5.5 * h gb 13.7 11.5 - 16.5 * h ct 39.7 35 - 55 * m cv 90.0 75 - 100 * m ch 31.0 25 - 35 * m chc 34.5 31 - 38 * p latlet 231 100 - 400 * Jenni Meyer 01/05/2025 12:5 9:43 PM >Britney Pearce 01/05/2025 01:56:04 PM >reviewed 2.?Others? Start Diflucan Tablet, 150 MG, 1 tablet, Orally, qd, 1 days, 1 Tablet, Refills 3.?? * Procedure Codes: G 2211 Complex e/[place], [address] CBC WITH AUTO DIFF, 43572 VENIPUNCT, ROUTINE*, 3074F SYST BP LT 130 MM HG, 3078F DIAST BP < 80 MM HG * Follow Up: p rn * Billing Information: * Visit Code: 31472 Office Visit, Est Pt., Level 3. * Procedure Codes: G2211 Complex e/[place]. [address] CBC WITH AUTO DIFF. 04377 VENIPUNCT, ROUTINE*. 3074F SYST BP LT 130 MM HG. 3078F DIAST BP < 80 MM HG. * Electronic signature of Nereyda Pearce APRN on 02/24/2025 at 09:12 AM EDT Sign off status: Pending * Provider: TERRANCE Garcia Date: 0 01/05/2025 Generated for Catalina bailey/Lavern/eTkenroyitting on: 0 02/24/2025 09:12 AM EDT History and Physical Notes * HPI (History of Present Illness) Category Sub-Category Detail Notes Category Not es Dermatology bug bites Pt is here today with c/o a tick bite. Pt sts the bite is on her lower stomach area and sts she get a fever after gettihg the bite, but sts the bite does look better now; developed polyarthralgia with nausea, fever and feeling badly all over the next day; no URI symptems Examination Category Sub-Category Detail Notes Category Not es General Examination HEENT: sclera and c onjunctiva clear, PERRLA, TM's normal, translucent Heart: RRR Lungs: CTAB A&P Abdomen: bowel sounds present , nontender , soft Extremities: no leg edema General Appearance: NAD , appears health y , alert , pleasant , well nourished and hydrated Neurologic Exam: alert and oriented Neck: supple , no lymphade nopathy Oral cavity: mucosa moist and WNL , no erythema Genitalia: Bilateral shoddy ing uinal LAD
--- OUTSIDE RECORDS SUMMARY | 2025-01-19 06:15 | XMS_ITS ---
Author Organization [facility] Address [address] [place] [address] [address] [place] [id number] Care Team Providers Care Steam Distribution Supervisor Name Role Phone Aliyah Rodriguez Primary Care Provider [phone] Monique Alarcon Unavailable [phone] Britney Pearce Unavailable [phone] Allergies Allergen (clinical drug ingredient) Drug/Non Drug Allergy documented on EMR Reaction Allergy Type Onset Date Status phenobarbital PHENobarbital Unknown Drug Allergy Active Substance with penicillin structure and antibacterial mechanism of action (substance) Penicillins Unknown Drug Allergy Active Substance with sulfonamide structure and antibacterial mechanism of action (substance) Sulfa Antibiotics Unknown Drug Allergy Active REASON FOR VISIT Not Feeling Better Encounters Encounter Location Date Provider Diagnosis [facility] [address] [place] [phone] 01/19/2025 Britney Pearce Plan Of Treatment Next Appt Details Provider Name:Britney barba, 03/16/2025 11:30:00 AM, [address] [facility] [address] [facility], [address], [facility] [place], [id number], Progress Notes * YAMILETH HEADLEYADOB:[birth year] (69 yo F)Acc No.[id number]:01/19/2025 Progress Notes Patient: KRYSTA LAM Provider: TERRANCE Garcia :1955 A ge:69 Y S ex:Female Date:01/19/2025 Address:[address], [place], [id number] Pcp:Aliyah Rodriguez Subjective: * Chief Complaints: * 1 . Not Feeling Better. * HPI: H PI: 69 year old female presents with c/o Patient is here today for.? * ROS: D ERMATOLOGY: no R kevin. [...] Family History: F ather: alive 77 yrs, [place] in 40. M other: alive 74 yrs. [...] active: yes. Travel ouside [place]: no. * Allergies: P enicillins, Sulfa Antibiotics, PHENobarbital. Objective: * Vitals: Assessment: Plan: * Treatment: * Billing Information: * Visit Code: * Procedure Codes: * Electronic signature of Nereyda Pearce APRN on 02/24/2025 at 09:12 AM EDT Sign off status: Pending * Provider: TERRANCE Garcia Date: 0 01/19/2025 Generated for Catalina bailey/Lavern/Vilma on: 0 02/24/2025 09:12 AM EDT History and Physical Notes * HPI (History of Present Illness) Category Sub-Category Detail Notes Category Not es HPI Patient is here today for
--- OUTSIDE RECORDS SUMMARY | 2025-02-09 07:15 | XMS_ITS ---
Author Organization [facility] Address [address] [facility] [address] [id number] Care Team Providers Care Colored Leather Setter Name Role Phone Aliyah Rodriguez Primary Care Provider VladimirMonique riddle Unavailable [phone] Britney Pearce Unavailable [phone] Allergies Allergen (clinical drug ingredient) Drug/Non Drug [...] Range Notes CBC Venipuncture (in house) Reviewed date:02/20/2025 09:10:48 AM Interpretation: Performing Lab: Notes/Report: wbc 6.9 3.5 - 10 lymph 20.8 15 - 50 mid 5.7 2 - 15 gran 73.5 35 - 80 rbc 4.44 3.5 - 5.5 hgb 13.6 11.5 - 16.5 hct 40.0 35 - 55 mcv 90.0 75 - 100 mch 30.7 25 - 35 mchc 34.1 31 - 38 platlet 265 100 - 400 Antinuclear Antibodies (DAISY) 9 Panel w/o Screen Reviewed date:02/20/2025 09:11:21 AM Interpretation:+ scleroderma Performing Lab: Notes/Report: Test performed by [facility], [employer] [address] [place] [address] , [address], [place] [address] Raymundo Giordano MD, Director Corporate CLIA: [id number] Chromatin Antibodies 0.5 0.0-0.[address] is performed by Multiplex Bead Immunoassay methodology. Centromere Antibodies <0.2 0.0-0.9 AI This t est is performed by Multiplex Bead Immunoassay methodology. Diamond Antibodies IgG <0.2 0.0-0.[address] is performed by Multiplex Bead Immunoassay methodology. CAN CUTTER Antibodies 0.5 0.0-0.9 AI This test is performed by Multiplex Bead Immunoassay methodology. Scleroderma (SCL-70) Antibodies 1.2 0.0-0.9 AI This test is perform ed by Multiplex Bead Immunoassay methodology. Carmen-1 Antibodies <0.2 0.0-0.9 AI dsDNA Antibodies <1 0-4 IU/mL For dsDNA: Results of < or = 4 IU/mL are Negative Results of 5-9 IU/mL are Indeterminate Results of > or = 10 IU/mL are Positive SS-A Autoantibodies IgG <0.2 0.0-0.9 AI This test is performed by Multiplex Bead Immunoassay methodology. SS-B Autoantibodies IgG <0.2 0.0-0.9 AI P-Comprehensive Metabolic Pa katelynn (CMP) Reviewed date:02/20/2025 09:14:57 AM Interpretation:Normal Performing Lab: Notes/Report: Test performed by [facility] , [address], [place] [address] Raymundo Giordano MD, Director Corporate CLIA: [id number] Sodium 142 135-145 mmol/L Potassium 4.1 3.5-5.3 mmol/L Chloride 106 97-108 mmol/L CO2 26 22-32 mmol/L Glucose 78 65-99 mg/dL BUN 10 8-23 mg/dL Creatinine 0.55 0.50-1.00 mg/dL Calcium 8.9 8.6-10.4 mg/dL eGFR by Creatinine 99 >59 mL/min/1.73m2 Protein 6.0 6.0-8.3 g/dL Albumin 4.1 3.5-5.3 g/dL Alkaline Phosphatase 54 35-121 IU/L ALT (SGPT) 14 <5-47 IU/L AST (SGOT) 12 <5-40 IU/L Bilirubin, Total 0.5 <0.2-1.2 mg/dL A/G Ratio 2.2 1.1-2.5 P-Arthritis Panel, [facility] Reviewed date:02/20/2025 09:10:01 AM Interpretation:+ DAISY Performing Lab: Notes/Report: Test performed by [facility] [address] [place] [address] , [address], [place] [address] Raymundo Giordano MD, Director Corporate CLIA: [id number] Erythrocyte Sedimentation Rate (ESR), Automated 2 <31 mm/hr Rheumatoid Factor <10 <14.1 IU/mL C-Reactive Protein (CRP) 0.28 <0.50 mg/dL Antinuclear Antibodies (DAISY) Screen, Reflex DAISY 9 Panel POSITIVE Negative This test is performed by Multiplex Bead Immunoassay methodology. CCP Antibodies <0.5 <0.5-3.0 U/mL Antinuclear Antibodies (DAISY) Result Note SEE COMMENT For positive Autoantibodies, please refer to the interpretive chart here: [email or web address] P-Uric Acid Reviewed date:02/20/2025 09:10:24 AM Interpretation:2.8 Performing Lab: Notes/Report: Test performed by [facility] [address] [place] [address] , [address], [place] [address] Raymundo Giordano MD, Director Corporate CLIA: [id number] Uric Acid 2.8 2.4-7.0 mg/dL X ray : Knee, right Reviewed date:02/20/2025 09:11:54 AM Interpretation:mild DJD Performing Lab: Notes/Report: mild DJD X ray : Hands, bilateral Reviewed date:02/20/2025 09:12:59 AM Interpretation:multiple DJD Performing Lab: Notes/Report: multiple DJD X ray : Hands, bilateral Reviewed date:02/20/2025 09:12:59 AM Interpretation:multiple DJD Performing Lab: Notes/Report: multiple DJD REASON FOR VISIT F/U tick bite Medications Medication SIG (Take, Route, Frequency, Duration) Notes Start Date End Date Status Creon [id number] UNIT as directed Orally Not-Taking Estradiol 1 MG 1 tablet Orally Once a day for 30 day(s) Active Vital Signs Blood pressure systolic 120 mm Hg 02/10/20 25 Blood pressure diastolic 70 mm Hg 025 Heart Rate 61 /min 02/09/2025 Height 63 in 02/09/2025 Weight 142.8 lbs 02/09/2025 BMI 25.29 kg/m2 02/09/2025 Encounters Encounter Location Date Provider Diagnosis [facility] [address] [place] [address] [address] [place], [place] [id number] 02/09/2025 Britney Pearce Knee pain M25.569 ; Hand joint pain M79.643 and BMI 25.0-25.9,adult Z68.25 Assessments Encounter Date Diagnosis (ICD Code) Assessment Notes Treatment Notes Treatment Clinical Notes Section Notes 02/09/2025 Knee pain (ICD-10 - M25.569) xrays ordered, labs to check for autoimmune, inflammatory markers, and uric acid. Ibuprofen and tylenol as need for pain 02/09/2025 Hand joint pain (ICD-10 - M79.643) 02/09/2025 BMI 25.0-25.9,adul t (ICD-10 - Z68.25) Plan Of Treatment Treatment Notes Assessment Notes Knee pain xrays ordered, labs to check for autoimmune, inflammatory markers, and uric acid. Ibuprofen and tylenol as need for pain Pending Test Test Name Order Date Z-W-Itragwot Protein (CRP) 02/09/2025 Next Appt Details Follow Up: prn, 1 week if no t better, Reason: Provider Name:Britney barba, 03/16/2025 11:30:00 AM, [address] [place] [address] [address] [facility], [address], [place], [place], [id number], Progress Notes * ROGER HEADLEYB:[birth year] (69 yo F)Acc No.[id number]:02/09/2025 Progress Notes Patient: KRYSTA LAM Provider: TERRANCE Garcia :1955 A ge:69 Y S ex:Female Date:02/09/2025 Address:[address], [place], [id number] Pcp:Aliyah Rodriguez Subjective: * Chief Complaints: * 1 . F/U tick bite. * HPI: H PI: 69 year old female presents with c/o Here for follow up on:?Pt is here today for a f/u on a tick bite. Pt sts the bite is better, but sts that 2 weeks after the bite she was sore in her joints and could not get out of bed. Pt sts that her rt leg and hand are swollen as well. * ROS: D ERMATOLOGY: no R kevin. [...] Family History: F ather: alive 77 yrs, ME in 40. M other: alive 74 yrs. [...] yes. Travel ouside [place]: no. * Medications: T aking Estradiol 1 MG Tablet 1 tablet Orally Once a day , Not-Taking Creon [id number] UNIT Capsule Delayed Release Particles as directed Orally , Discontinued Doxycycline Hyclate 100 MG Capsule 1 capsule Orally Twice a day , Discontinued Diflucan 150 MG Tablet 1 tablet Orally qd , Medication List reviewed and reconciled with the patient * Allergies: P enicillins, Sulfa Antibiotics, PHENobarbital. Objective: * Vitals: W t: 142.8, Temp: 98.2, BP: 120/70, HR: 61, O2 Sat: 99% on RA, Nurse: mmh, Ht: 63, BMI:25.29. * Examination: G eneral Examination: General Appearance: N AD. Heart: R RR. Lungs: c lear to auscultation, normal. Skin: n ormal, no rash. R heumatology: Upper extremity: p ain in bilateral hands. Lower extremity: R knee swelling anterior and posterior, lateral tenderness, decreased ROM. Assessment: * Assessment: 1. K nee pain - M25.569 (Primary) 2 . H and joint pain - M79.643 3 . B ME 25.0-25.9,adult - Z68.25 Plan: * Treatment: Value Reference Range A /G Ratio 2.2 1.1-2.5 - * A lbumin 4.1 3.5-5.3 - g/dL * A lkaline Phosphatase 54 35-121 - IU/L * A LT (SGPT) 14 <5-47 - IU/L * A ST (SGOT) 12 <5-40 - IU/L * B ilirubin, Total 0.5 <0.2-1.2 - mg/dL * B UN 10 8-23 - mg/dL * C alcium 8.9 8.6-10.4 - mg/dL * C hloride 106 97-108 - mmol/L * C O2 26 22-32 - mmol/L * C reatinine 0.55 0.50-1.00 - mg/dL * G lucose 78 65-99 - mg/dL * P otassium 4.1 3.5-5.3 - mmol/L * S odium 142 135-145 - mmol/L * P rotein 6.0 6.0-8.3 - g/dL * e GFR by Creatinine 99 >59 - mL/min/1.73m2 * Britney Pearce 02/20/2025 09:11:31 AM EDT >scheduled for office visit ?LAB: P-Arthritis Panel, [facility] (Collection Date & Time - 02/09/2025 11:40 AM)?+ DAISY* Value Reference Range A ntinuclear Antibodies (DAISY) Result Note SEE COMMENT - * A ntinuclear Antibodies (DAISY) Screen, Reflex DAISY 9 Panel POSITIVE A Negative - * C CP Antibodies <0.5 <0.5-3.0 - U/mL * C -Reactive Protein (CRP) 0.28 <0.50 - mg/dL * E rythrocyte Sedimentation Rate (ESR), Automated 2 <31 - mm/hr * R heumatoid Factor <10 <14.1 - IU/mL * Griselda Pearceine 02/20/2025 09:09:38 AM EDT >scheduled for OV; have been unable to reach via phone ?LAB: P-Uric Acid (Collection Date & Time - 02/09/2025 11:40 AM)?2.8* Value Reference Range U dmitriy Acid 2.8 2.4-7.0 - mg/dL * PearceLinneaBritney 02/20/2025 09:10:08 AM EDT >scheduled for OV ?LAB: CBC Venipuncture (in house) (Collection Date & Time - 02/09/2025)* Value Reference Range w bc 6.9 3.5 - 10 * l ymph 20.8 15 - 50 * m id 5.7 2 - 15 * g ran 73.5 35 - 80 * r bc 4.44 3.5 - 5.5 * h gb 13.6 11.5 - 16.5 * h ct 40.0 35 - 55 * m cv 90.0 75 - 100 * m ch 30.7 25 - 35 * m chc 34.1 31 - 38 * p latlet 265 100 - 400 * BetsyJenni 02/09/2025 12:53 :54 PM EDT >Linnea Pearceharine 02/20/2025 09:10:36 AM EDT >scheduled for OV ?Imaging: X ray : Knee, right (Performed Date - 02/10/2025)?mild DJD Notes: xrays ordered, labs to check for autoimmune, inflammatory markers, and uric acid. Ibuprofen and tylenol as need for pain??2.?Hand joint pain?LAB: P-Comprehensive Metabolic Panel (CMP) (Collection Date & Time - 02/09/2025 11:40 AM)?Normal* Value Reference Range A /G Ratio 2.2 1.1-2.5 - * A lbumin 4.1 3.5-5.3 - g/dL * A lkaline Phosphatase 54 35-121 - IU/L * A LT (SGPT) 14 <5-47 - IU/L * A ST (SGOT) 12 <5-40 - IU/L * B ilirubin, Total 0.5 <0.2-1.2 - mg/dL * B UN 10 8-23 - mg/dL * C alcium 8.9 8.6-10.4 - mg/dL * C hloride 106 97-108 - mmol/L * C O2 26 22-32 - mmol/L * C reatinine 0.55 0.50-1.00 - mg/dL * G lucose 78 65-99 - mg/dL * P otassium 4.1 3.5-5.3 - mmol/L * S odium 142 135-145 - mmol/L * P rotein 6.0 6.0-8.3 - g/dL * e GFR by Creatinine 99 >59 - mL/min/1.73m2 * Britney Pearce 02/20/2025 09:11:31 AM EDT >scheduled for office visit ?LAB: P-Arthritis Panel, [facility] (Collection Date & Time - 02/09/2025 11:40 AM)?+ DAISY* Value Reference Range A ntinuclear Antibodies (DAISY) Result Note SEE COMMENT - * A ntinuclear Antibodies (DAISY) Screen, Reflex DAISY 9 Panel POSITIVE A Negative - * C CP Antibodies <0.5 <0.5-3.0 - U/mL * C -Reactive Protein (CRP) 0.28 <0.50 - mg/dL * E rythrocyte Sedimentation Rate (ESR), Automated 2 <31 - mm/hr * R heumatoid Factor <10 <14.1 - IU/mL * Britney Pearce 02/20/2025 09:09:38 AM EDT >scheduled for OV; have been unable to reach via phone ?LAB: P-Uric Acid (Collection Date & Time - 02/09/2025 11:40 AM)?2.8* Value Reference Range U dmitriy Acid 2.8 2.4-7.0 - mg/dL * Britney Pearce 02/20/2025 09:10:08 AM EDT >scheduled for OV ?Imaging: X ray : Hands, bilateral (Performed Date - 02/10/2025)?multiple DJD* Portia Britney 02/20/2025 09:12:43 AM EDT >has a FU OV * Labs: * L ab: Antinuclear Antibodies (DAISY) 9 Panel w/o Screen (Collection Date & Time - 02/09/2025 11:40 AM) + scleroderma Value Reference Range C entromere Antibodies <0.2 0.0-0.9 - AI * C hromatin Antibodies 0.5 0.0-0.9 - AI * d sDNA Antibodies <1 0-4 - IU/mL * J o-1 Antibodies <0.2 0.0-0.9 - AI * R ELECTRICAL AND INSTRUMENTATION MANAGER Antibodies 0.5 0.0-0.9 - AI * S cleroderma (SCL-70) Antibodies 1.2 H 0.0-0.9 - AI * S mith Antibodies IgG <0.2 0.0-0.9 - AI * S S-A Autoantibodies IgG <0.2 0.0-0.9 - AI * S S-B Autoantibodies IgG <0.2 0.0-0.9 - AI * [facility], IT support 02/10/2025 03:30:14 : This order was created by the Interface.Britney Pearce 02/11/2025 03:16:57 PM EDT >no answer when ángelBritney Pearce 02/12/2025 05:13:25 PM EDT >NO answer on grantBritney Pearce 02/16/2025 04:18:52 PM EDT >no answer when phoneBritney resendiz 02/20/2025 09:11:03 AM EDT >scheduled for office visit * Procedure Codes: G 2211 Complex [place], [address] CBC WITH AUTO DIFF, 78022 VENIPUNCT, ROUTINE*, G8783 BP SCR PRFRM RCMDD DEFIND SCR INTVL, G8752 MOST RECENT SYSTOLIC BP < 140MM HG, G8754 MOST RECENT DIASTOLIC BP < 90MM HG, G8420 BMI<30 AND >=22 CALC & DOCU, 3017F COLORECTAL CA SCREEN DOC REV * Preventive Medicine: Screening / Special Tests: C olonoscopy P erformed by Dr. Corral on 10/20/2024 with normal results, copy of results scanned to patient chart. * Follow Up: p rn, 1 week if not better * Billing Information: * Visit Code: 54868 Office Visit, Est Pt., Level 4. * Procedure Codes: G2211 Complex e/[place]. [address] CBC WITH AUTO DIFF. 59767 VENIPUNCT, ROUTINE*. G8783 BP SCR PRFRM RCMDD DEFIND SCR INTVL. G8752 MOST RECENT SYSTOLIC BP < 140MM HG. G8754 MOST RECENT DIASTOLIC BP < 90MM HG. G8420 BMI<30 AND >=22 CALC & DOCU. 3017F COLORECTAL CA SCREEN DOC REV. * Electronic signature of Nereyda Pearce APRN on 02/24/2025 at 09:12 AM EDT Sign off status: Pending * Provider: TERRANCE Garcia Date: 0 02/09/2025 Generated for Catalina bailey/Lavern/Carinitting on: 0 02/24/2025 09:12 AM EDT History and Physical Notes * HPI (History of Present Illness) Category Sub-Category Detail Notes Category Not es HPI Here for follow up on: Pt is her e today for a f/u on a tick bite. Pt sts the bite is better, but sts that 2 weeks after the bite she was sore in her joints and could not get out of bed. Pt sts that her rt leg and hand are swollen as well Examination Category Sub-Category Detail Notes Category Not es General Examination Heart: RRR Lungs: clear to auscultatio n, normal General Appearance: NAD Skin: normal, no rash Rheumatology Upper extremity: pain in bilateral hands Lower extremity: R knee swelling ante rior and posterior, lateral tenderness, decreased ROM
--- NOTE | 2025-02-24 09:12 | XR_ITS ---
FINAL REPORT TECHNIQUE: Bone densitometry calculations of the lumbar spine and bilateral hips were obtained. CLINICAL HISTORY: SCREENING COMPARISON: None FINDINGS: Using L1-4, the bone mineral density of the spine is 1.388 g/cm2, corresponding to T-score of 3.1. Using the left hip, the bone mineral density of the femoral neck is 0.932 g/cm2, corresponding to a T-score of 0.7. Using the right hip, the bone mineral density of the femoral neck is 0.920 g/cm?, corresponding to a T-score of 0.6. NOTE: T-score: Standard deviation compared with peak bone mass of young adult mean. *Following the recommendations of the International Society of Bone densitometry, classification of hip BMD is based on the lower of two T-scores; total hip or femoral neck. IMPRESSION: Normal bone mineral density of the lumbar spine and bilateral hips. Reviewed, Interpreted and Dictated by Robinson Elise MD Transcribed by Sonia Presley Authenticated and [facility]
--- OUTSIDE RECORDS SUMMARY | 2025-02-24 09:12 | XMS_ITS | Patient Health Record ---
Author Organization [facility] Address [address] [facility] [address] [id number] Care Team Providers Care Ethnic Origins Teacher Name Role Phone Aliyah Rodriguez Primary Care Provider Monique Alarcon Unavailable [phone] Britney Pearce Unavailable [phone] Allergies Allergen (clinical drug ingredient) Drug/Non Drug Allergy documented on EMR Reaction Allergy Type Onset Date Status phenobarbital PHENobarbital Unknown Drug Allergy Active Substance with penicillin structure and antibacterial mechanism of action (substance) Penicillins Unknown Drug Allergy Active Substance with sulfonamide structure and antibacterial mechanism of action (substance) Sulfa Antibiotics Unknown Drug Allergy Active Results Component Value Reference Range Notes X ray : Hands, bilateral Reviewed date:02/20/2025 09:12:59 AM Interpretation:multiple DJD Performing Lab: Notes/Report: multiple DJD X ray : Hands, bilateral Reviewed date:02/20/2025 09:12:59 AM Interpretation:multiple DJD Performing Lab: Notes/Report: multiple DJD X ray : Knee, right Reviewed date:02/20/2025 09:11:54 AM Interpretation:mild DJD Performing Lab: Notes/Report: mild DJD P-Uric Acid Reviewed date:02/20/2025 09:10:24 AM Interpretation:2.8 Performing Lab: Notes/Report: Test performed by [facility] [address] [place] [address] , [address], [place] [address] Raymundo Giordano MD, Mineral Surveying Technician CLIA: [id number] Uric Acid 2.8 2.4-7.0 mg/dL P-Arthritis Panel, Maryjo Reviewed date:02/20/2025 09:10:01 AM Interpretation:+ DAISY Performing Lab: Notes/Report: Test performed by [facility] [address] [place] [address] , [address], [place] [address] Raymundo Giordano MD, Mineral Surveying Technician CLIA: [id number] Erythrocyte Sedimentation Rate (ESR), Automated 2 <31 mm/hr Rheumatoid Factor <10 <14.1 IU/mL C-Reactive Protein (CRP) 0.28 <0.50 mg/dL Antinuclear Antibodies (DAISY) Screen, Reflex DAISY 9 Panel POSITIVE Negative This test is performed by Multiplex Bead Immunoassay methodology. CCP Antibodies <0.5 <0.5-3.0 U/mL Antinuclear Antibodies (DAISY) Result Note SEE COMMENT For positive Autoantibodies, please refer to the interpretive chart here: [email or web address] P-Comprehensive Metabolic Pa katelynn (CMP) Reviewed date:02/20/2025 09:14:57 AM Interpretation:Normal Performing Lab: Notes/Report: Test performed by [facility] [address] [place] [address] , [address], [place] [address] Raymundo Giordano MD, Mineral Surveying Technician CLIA: [id number] Sodium 142 135-145 mmol/L Potassium 4.1 3.5-5.3 [...] 0.5 <0.2-1.2 mg/dL A/G Ratio 2.2 1.1-2.5 Antinuclear Antibodies (DAISY) 9 Panel w/o Screen Reviewed date:02/20/2025 09:11:21 AM Interpretation:+ scleroderma Performing Lab: Notes/Report: Test performed by [facility] [address] [facility] , [address], [place] [address] Raymundo Giordano MD, Mineral Surveying Technician CLIA: [id number] Chromatin Antibodies 0.5 0.0-0.[address] is performed by Multiplex Bead Immunoassay methodology. Centromere Antibodies <0.2 0.0-0.9 AI This t est is performed by Multiplex Bead Immunoassay methodology. Diamond Antibodies IgG <0.2 0.0-0.[address] is performed by Multiplex Bead Immunoassay methodology. WET PROCESS HEAD MILLER Antibodies 0.5 0.0-0.9 AI This test is [...] methodology. SS-B Autoantibodies IgG <0.2 0.0-0.9 AI CBC Venipuncture (in house) Reviewed date:02/20/2025 09:10:48 [...] - 38 platlet 265 100 - 400 P-Lyme Disease (B. odilon germaini), IgG/IgM, PAUL, Serum Reviewed date:02/11/2025 07:16:06 AM Interpretation:negative Performing Lab: Notes/Report: Test performed by [facility] [address] [facility] , [address], [place] [address] Raymundo Giordano MD, Mineral Surveying Technician CLIA: [id number] B burgdorferi (Lyme Disease) IgG Negative Negative B burgdorferi (Lyme Disease) IgM Negative Negative CBC Venipuncture (in house) Reviewed date:01/05/2025 01:56:13 [...] - 38 platlet 231 100 - 400 P-Lipase Reviewed date:07/22/2024 11:28:55 AM Interpretation:15.8 Performing Lab: Notes/Report: Test performed by [facility] [address] [place] [address] , [address], [place] [address] Raymundo Giordano MD, Mineral Surveying Technician CLIA: [id number] Lipase 15.8 13.0-60.0 u/L P-Comprehensive Metabolic Pa katelynn (CMP) Reviewed date:07/22/2024 09:34:47 AM Interpretation:K+ 3.3 Performing Lab: Notes/Report: Test performed by [facility] [address] [place] [address] , [address], [place] [address] Raymundo Giordano MD, Mineral Surveying Technician CLIA: [id number] Sodium 141 135-145 mmol/L Potassium 3.3 3.5-5.3 mmol/L Chloride 105 97-108 mmol/L CO2 26 22-32 mmol/L Glucose 81 65-99 mg/dL BUN 10 8-23 mg/dL Creatinine 0.56 0.50-1.00 mg/dL Calcium 8.8 8.6-10.4 mg/dL eGFR by Creatinine 99 >59 mL/min/1.73m2 Protein 6.2 6.0-8.3 g/dL Albumin 4.0 3.5-5.3 g/dL Alkaline Phosphatase 55 35-121 IU/L ALT (SGPT) 12 <5-47 IU/L AST (SGOT) 11 <5-40 IU/L Bilirubin, Total 0.4 <0.2-1.2 mg/dL A/G Ratio 1.8 1.1-2.5 P-Amylase Reviewed date:07/22/2024 09:35:09 AM Interpretation:37 Performing Lab: Notes/Report: Test performed by [facility] [address] [place] [address] , [address], [place] [address] Raymundo Giordano MD, Mineral Surveying Technician CLIA: [id number] Amylase 37 28-100 U/L CBC Venipuncture (in house) Reviewed date:07/21/2024 03:07:22 PM Interpretation: Performing Lab: Notes/Report: wbc 6.4 3.5 - 10 lymph 25.1% 15 - 50 mid 6.1% 2 - 15 gran 68.8% 35 - 80 rbc 4.69 3.5 - 5.5 hgb 14.4 11.5 - 16.5 hct 42.8 35 - 55 mcv 91.2 75 - 100 mch 30.6 25 - 35 mchc 33.6 31 - 38 platlet 281 100 - 400 P-TSH Reviewed date:07/22/2024 09:35:30 AM Interpretation:2.07 Performing Lab: Notes/Report: Test performed by [facility] [address] [place] [address] , [address], [place] [address] Raymundo Giordano MD, Mineral Surveying Technician CLIA: [id number] TSH 2.07 0.43-5.25 mU/L colonoscopy Reviewed date:02/10/2025 10:30:23 AM Interpretation:Normal Performing Lab: Notes/Report: Normal result: normal Medications Medication SIG (Take, Route, Frequency, Duration) Notes Start Date End Date Status Creon [id number] UNIT as directed Orally Not-Taking Estradiol 1 MG 1 tablet Orally Once a day for 30 day(s) Active Immunizations Vaccine Route Administration Date Status Comme nts Tetanus Tdap-Adacel (over 7yrs) IM Intramuscular 03/12/2008 Administered Problems Problem Type SNOMED Code ICD Code Onset Dates Problem Status W/U Status Risk Notes Problem 891863024719987 New daily persistent headache (G44.52) Active confirmed Problem 710920416 Liver lesion (K76.9) Active confirmed Problem 231251235 Sphincter of Oddi dysfunction (K83.4) Active confirmed Problem 27353463 Primary hypertension (I10) Active confirmed Vital Signs Heart Rate 61 /min 02/09/2025 Blood pressure diastolic 70 mm Hg 02/09/2025 Height 63 in 02/09/2025 Blood pressure systolic 120 mm Hg 02/09/2025 Weight 142.8 lbs 02/09/2025 BMI 25.29 kg/m2 02/09/2025 Encounters Encounter Location Date Provider Diagnosis [facility] [address] [place] [address] [place] [id number] 07/21/2024 Britney Pearce Pancreatic disorder K86.9 ; Diarrhea R19.7 ; Abdominal pain, acute, epigastric R10.13 and Hypotension I95.9 [facility] [address] [place] [address] [place] [id number] 07/28/2024 Britney Pearce Hypotension I95.9 an d Diarrhea R19.7 [facility] [address] [place] [address] [place] [id number] 01/05/2025 Britney Pearce Tick bite W57.XXXA ; Fever, unspecified R50.9 ; Polyarthralgia M25.50 and Nausea R11.0 [facility] [address] [place] [address] [place] [id number] 02/09/2025 Britney Pearce Knee pain M25.569 ; Hand joint pain M79.643 and BMI 25.0-25.9,adult Z68.25 [facility] [address] [place] [address] [place] [id number] 01/29/2025 Britney Pearce [facility] [place] [id number] 02/10/2025 Aliyah Rodriguez Assessments Encounter Date Diagnosis (ICD Code) Assessment Notes Treatment Notes Treatment Clinical Notes Section Notes 07/21/2024 Diarrhea (ICD-10 - R19.7) 07/21/2024 Pancreatic disorder (ICD-10 - K86.9) 07/28/2024 Diarrhea (ICD-10 - R19.7) she will call for appt with DR. Corral 07/28/2024 Hypotension (ICD-10 - I95.9) resolved 01/05/2025 Fever, unspecified (ICD-10 - R50.9) 01/05/2025 Tick bite (ICD-10 - W57.XXXA) 02/09/2025 Knee pain (ICD-10 - M25.569) xrays ordered, labs to check for autoimmune, inflammatory markers, and uric acid. Ibuprofen and tylenol as need for pain 02/09/2025 Hand joint pain (ICD-10 - M79.643) 07/21/2024 Abdominal pain, acute, epigastric (ICD-10 - R10.13) discussed dietary intake; she eats clean 02/09/2025 BMI 25.0-25.9,adult (ICD-10 - Z68.25) 01/05/2025 Polyarthralgia (ICD-10 - M25.50) 07/21/2024 Hypotension (ICD-10 - I95.9) she reports low BP last week and dizziness; will stop BP med; she will continue to monitor BP at home 01/05/2025 Nausea (ICD-10 - R11.0) Plan Of Treatment Pending Test Test Name Order Date Lyme titre IgG 01/05/2025 Bone density 02/10/2025 A-H-Lticvxoy Protein (CRP) 02/09/2025 Miscell Ref Lab Test 01/05/2025 Next Appt Details Provider Name:Britney Gipson onatif, 03/16/2025 11:30:00 AM, [address] [facility], [address], [place], [place], [id number], Insurance Providers Payer Name Payer Address Payer Phone Subscriber Number Group Number Insured Name Patient Relationship to Insured Coverage Start Date Coverage End Date MEDICARE PART B [address] [address] [place] [id number] KRYSTA NELSON Self - patient is the insured [facility] [employer] [address] [place] [address] [id number] KRYSTA NELSON Self - patient is the insured Medications Administered Medication Instructions Date of Administration Dosage Notes Depo- Medrol 40 mg/ml 09/24/2013 1 mL Dexamethasone 09/07/2006 1 mL Dexamethasone 12/03/2006 1 mL Dexamethasone 11/04/2018 1 mL Medical (General) History Medical History History ICD Code h/o kidney stones back pain Surgical History Surgery Date(Month/Year) hysterectomy abdominal Cholecystectomy, post-op pancreatitis 19 98 bladder tac laparoscopy x6 EGD, gastritis 2011 EGD, gastritis 2013 Hospitalization History Reason Date(Month/Year) pneumonia 12/10/06
--- OUTSIDE RECORDS SUMMARY | 2025-02-24 09:12 | XMS_ITS | Data Portability ---
Author Organization [facility] & ABIMBOLA Ruiz ADMIN Address [address] [place] [address] Care Team Providers Care Box Finisher Name Role Phone JESSICA MURPHY Primary Care Provider [phone] Assessment No assessment recorded. Plan of Treatment Reminders Order Date Submit Date Provider Last Modified By Organization Details Last Modified Time Details Appointments None recorded. Lab None recorded. Referral None recorded. Procedures None recorded. Surgeries None recorded. Imaging electrocard iogram [address] (Centralized Scheduling), [address] [place], [address], 3 16:22:07 nuclear stress test [address] (Centralized Scheduling), [address] [place], [address], 3 07:56:14 US, echocardiog atul, transthorac ic, complete, w/ color flow [address] (Centralized Scheduling), [address] [place], [address], 3 07:56:14 Medication Orders lisinopril 10 mg tablet 2023 024 [facility], [address], [address], 4 15:03:21 lisinopril 10 mg tablet 2022 023 [facility], [address], [address], 3 11:27:25 lisinopril 10 mg tablet 2022 023 [facility], [address] [place], [address], 3 15:50:53 Patient TargetsNo targets recorded. Patient InstructionsNo instructions recorded. Reason for Referral None Reported. Results Created Date Observation Date Name Description Value Unit Range Abnormal Flag Note LastModifiedBy Organization Detail LastModifiedTime 01/26/2001/24/2023 ECHO W spec color flow [facility] [address] [place] [address] Phone: Fax: Name: KRYSTA RICH Exam Date: : 955 Age 67 Gender : F Access ion: [id number] Physic norberto: MIGUEL VILCHIS Facili ty: [facility] Facili ty HSV: Outpat ient Exam: ECHO W SPEC COLOR FLOW Reason for Study: chest pain, syncop e SUMMAR Y Normal LV size with normal functi on. The ejecti on fracti on is 60-65% . Normal diasto lic functi on. Mildly dilate d left atrium . There is mild aortic regurg itatio n. There is mild mitral regurg itatio n. There is mild tricus pid regurg itatio n. Normal PA pressu re (31 mmHg). INTERP RETATI ON DETAIL Fair qualit y study. Left ventri tommy: The left ventri tommy is normal in size with normal systol ic functi on. The ejecti on fracti on is 60-65% . There is normal LV wall thickn ess. The left ventri cular wall motion is normal . Mitral fillin g indica isauro Normal diasto lic functi on. False chords are presen t. Left atrium : The left atrium is mildly dilate d. LA volume : 53.3mL , LA volume index: 31.2mL /mA . Right ventri tommy: The right ventri tommy is normal in size with normal functi on. Right atrium : The right atrium is normal . Mitral valve: The mitral valve is mildly thicke zabrina. There is no mitral stenos is. There is mild mitral regurg itatio n direct ed wrapper sizer iorly. Aortic valve: The aortic valve is trivia lly thicke zabrina. There is aortic valve sclero sis with a valve area of 2.22 abe teacher (Peak grad=8 mmHg, Mean grad=4 mmHg, LVOT rivka=2. 00cm, LVOT TVI=24 .2cm, Ao TVI=34 .3cm). The dimens ionles s index is 0.71. AV peak veloci xg=709 cm/sec . There is mild aortic regurg itatio n. (AR Decel= 1.530 m/secA ). AR pressu re half time=7 17ms. Tricus pid valve: There is mild tricus pid regurg itatio n. PASP= 31 mmHg, RAP=10 mmHg. Pulmon ic valve: The pulmon ic valve is normal . There is physio logic pulmon ic regurg itatio n. Perica rdium: The perica rdium is normal . Intera trial septum : The intera trial septum is normal . Aorta: The aortic root is normal . Aortic dimens ions - Ao M-mode = 2.60cm , Ascend ing=2. 90cm. Vena Cava: The inferi or vena cava is normal . There is greate r than 50% inspir atory collap se of the IVC. MEASUR EMENTS Left Ventri tommy IVSd: 0.63cm (0.6-1 .1cm) PWd: 0.67cm (0.6-1 .1cm) Mass Barbara: 90g LVMI: 53g/mA (>50-9 5g/m) LVIDd: 4.59cm (3.7-5 .6 cm) LVIDdI : 2.68cm /m2 LVIDs: 3.24cm (1.8-4 .2 cm) LVIDsI : 1.89cm /m2 RWT: 0.29 ( E to A: 1.03 (0.6-2 ) E-e prime med: 11.11 E-e prime lat: 10.00 Legall y authen ticate d by DENG Braga 01-25 09:45: 59 Decel: 177.00 ms (168-2 32ms) Right Ventri tommy Mid RV Rivka: 2.8cm (2.7-3 .3cm) Max Valve Veloci ties AV peak jimi: 138cm/ sec LVOT: 99.90c m/sec Pulmon diana RAP: 10mmHg PASP: 31mmHg Atria LA AP: 3.3cm LA vol: 53.3mL ISSA: 31.2mL /mA (16-28 ml/m^2 ) Miguel Vilchis MD Electr onical ly signed by Dr. Miguel Vilchis on 2022 at 9:45 AM Dictat ed By: MIGUEL VILCHIS Transc ribed By: Transc ribed On: 023 9:45 AM Electr onical ly signed by: MIGUEL VILCHIS 023 Thank you for referr KRYSTA Dunlap to [facility] Hospit [facility]. Legall y authen ticate d by DENG Braga 01-25 09:45: 59 CC'ed Logic: Orderi ng Provid er: DENG THOMAS Attend ing Provid er: DENG THOMAS Referr ing Provid er: DENG THOMAS Admitt ing Provid er: DENG THOMAS [facility] [address] [place], [address], 01/29/2023 12:53:15 01/31/20 23 01/24/2023 heart SPECT multi rest/ stres s CARDIO LOGY REPORT - ORDERS -BASED KRYSTA RICH [facility] 0 2 EXAM: HEART SPECT MULTI REST/S TRESS [id number] DATE OF EXAM: 2022 06:52: 36 NUCLEA R STRESS REPORT PROVID ER: Miguel Vilchis MD, FACC REQUES TING PHYSIC NORBERTO: Miguel Vilchis MD, FACC INDICA TIONS: Chest pain. PROCED URE IN DETAIL : After inform ed consen t, the patien t underw ent exerci se treadm ill stress test as per Willi protoc ol. The patien t exerci sed for 5 minute s 18 second s attain ing 6.1 METS. Restin g heart of 51, linwood to maximu m 139 beats per minute repres enting 90% of maximu m age-pr edicte d heart rate. Restin g blood pressu re 196/80 , linwood iveth l 197/80 mmHg. The stress test was stoppe d due to shortn ess of breath . No chest pain. At rest, 10.28 millic uries of techne tium tetrof nain was infuse d, and SPECT was obtain ed. At peak stress , 31.3 millic uries of techne tium tetrof nain was infuse d. Stress SPECT image was obtain ed. Gated SPECT imagin g was also obtain ed. FINDIN GS: Baseli ne EKG showed normal sinus rhythm with about a millim eter ST-dep ressio n noted in the inferi or leads 2 minute s into recove ry. No arrhyt hmia noted. Calcul ated EF 59%. TID ratio 1.01. Review of the axial images showed homoge neous uptake of tracer with no eviden ce of myocar dial ischem ia or scar noted. FINAL IMPRES MARIYA: No eviden ce of myocar dial ischem ia. Calcul ated ejecti on fracti on of 59%. DICTAT ED BY: Miguel Vilchis MD, FACC JT/MOD L DD: 2022 08:56: 45 DT: 2022 10:56: 02 /[id number] Electr onical ly Signed By: DENG Braga 01-30 13:48: 06 CC'ed Logic: Orderi ng Provid er: DENG THOMAS Attend ing Provid er: DENG THOMAS Referr ing Provid er: DENG THOMAS Admitt ing Provid er: DENG THOMAS [facility] [address], [place], [address], 02/01/2023 11:16:50 Result Notes None recorded. Problems Name Problem SNOMED Code Status Onset Date Resolution Date Notes Provider Name and Address Organization Details Recorded Time Acid reflux 114986519 Active 2022 SHADE Monahan - S[place] - [place] [facility] [place] 3 11:06:16 Essential hypertension 55902437 Active 2022 Miguel Vilchis MD [address] [facility], [place], [address] , [place] - [facility] - [place] [facility] [place] 3 11:21:25 Syncope 547855450 Active 2022 Miguel Vilchis MD [address] [facility], [place], [address] , [place] [facility] [place] 3 11:23:40 Acute chest pain 097803205 Active 2022 Miguel Vilchis MD [address] [facility], [place], [address] , [place] [facility] [place] 3 11:24:41 Mitral valve regurgitation 17999507 Active 2022 Miguel Vilchis MD [address] [facility], [place], [address] , [place] [facility] [place] 3 11:38:45 Aortic valve regurgitation 69487798 Active 2022 Miguel Vilchis MD [address] [facility], [place], [address] , [place] - [facility] [place] 3 11:38:51 Mild mitral valve regurgitation 830068932 Active 2023 Miguel Vilchis MD [address] [facility], [place], [address] , [place] - [facility] [place] 4 15:02:32 Mild aortic valve regurgitation 570499163 Active 2023 Miguel Vilchis MD [address] [facility], [place], [address] , [place] [facility] [place] 4 15:02:39 Problem Notes None recorded. Procedures Surgical History Date Name Laterality Status Provider Name and Address Organization Details Recorded Time 07/03/20 23 completed Sammie Fabricio [place] - [facility] - [place] [facility] [place] 08/06/2023 11:16:22 05/16/20 21 Date of Last Colonoscopy completed Sammie Fabricio [place] - [facility] - [place] [facility] [place] 08/06/2023 11:16:22 09/10/19 10 Back Surgery completed [facility] & [place] 08/06/2023 11:16:43 Appendectomy completed [facility] & [place] 01/08/2023 11:06:55 cholecystostomy completed [facility] & [place] 01/08/2023 11:07:18 hysterectomy completed [facility] & [place] 01/08/2023 11:07:32 Other completed [facility] & [place] 08/06/2023 11:16:43 Imaging Results None recorded. Procedure Notes None recorded. Medical Equipment None Reported. Allergies Allergen ID Allergen Name Allergen Category Reaction Reaction Severity Criticality Documentation Date Start Date Code Code System Note Provider Name and Address Organization Details Recorded Time 54577 Product containin g penicilli n (product) medicatio n Not available Not available Not available 01/08/2023 33623 8001 SNOMED Sammie Fabricio gabbi, [facility] & [place] 3 11:05:48 40911 Substance with sulfonami de structure and antibacte rial mechanism of action (substanc e) medicatio n Not available Not available Not available 01/08/2023 48054 8003 SNOMED Sammie Fabricio null, [facility] & [place] 3 11:05:57 Medications Name Sig Start Date Stop Date Status Note LastModified by Organization Details LastModified Time azithromyci n 250 mg tablet TAKE 2 TABLETS BY MOUTH ON DAY 1, AND THEN TAKE 1 TABLET BY MOUTH ONCE A DAY ON DAY 2 THROUGH DAY 5 03/26 completed Not Available Not Available Not Available sucralfate 1 gram tablet active Not Available Not Available Not Available ondansetron 8 mg disintegrat ing tablet DISSOLVE 1 TABLET IN MOUTH EVERY 8 HOURS 03/26 completed Not Available Not Available Not Available oxycodone-a cetaminophe n 5 mg-325 mg tablet TAKE 1 TABLET BY MOUTH EVERY 4 TO 6 HOURS NEEDED FOR PAIN 03/26 completed Not Available Not Available Not Available estradiol 1 mg tablet TAKE 1 TABLET BY MOUTH ONCE DAILY active Not Available Not Available No t Available amitriptyli ne 10 mg tablet active Not Available Not Available Not Available lisinopril 10 mg tablet Take 1 tablet every day by oral route. 2023 active Not Available Not Available Not Avai lable budesonide DR - ER 3 mg capsule,del ayed,extend ed release TAKE 3 BY MOUTH EVERY DAY AT BEDTIME active Not Available Not Available No t Available Xifaxan 550 mg tablet 03/26 completed Not Available Not Available Not Available Creon 36,000 unit-114,00 0 unit-180,00 0 unit capsule,del ayed release TAKE 2 CAPSULES BY MOUTH THREE TIMES DAILY WITH MEALS active Not Available Not Available No t Available Vitals Date Recorded Body height Body mass index (BMI) Body weight Oxygen saturation Oxygen saturation in Arterial blood by Pulse oximetry Heart rate Systolic blood pressure Diastolic blood pressure Provider Name and Address Organization Details Last Updated DateTime 4 157.48 cm 26.9 kg/m2 19854.0 8 g 99 % 99 % 58 /min 136 mm[Hg] 74 mm[Hg] [facility] [place] 4 14:17:00 Date Recorded Body height Body mass index (BMI) Body weight Oxygen saturation Oxygen saturation in Arterial blood by Pulse oximetry Heart rate Systolic blood pressure Diastolic blood pressure Provider Name and Address Organization Details Last Updated DateTime 3 157.48 cm 27.3 kg/m2 45773.2 6 g 98 % 98 % 67 /min 160 mm[Hg] 82 mm[Hg] Sammie HORNER [facility] & [place] 3 11:11:10 Date Recorded Body height Body mass index (BMI) Body weight Oxygen saturation Oxygen saturation in Arterial blood by Pulse oximetry Heart rate Systolic blood pressure Diastolic blood pressure Provider Name and Address Organization Details Last Updated DateTime 3 157.48 cm 25.8 kg/m2 24986.5 2 g 96 % 96 % 59 /min 122 mm[Hg] 84 mm[Hg] Sammie Bruno [facility] & [place] 3 11:21:38 Date Recorded Body height Body mass index (BMI) Body weight Oxygen saturation Oxygen saturation in Arterial blood by Pulse oximetry Heart rate Systolic blood pressure Diastolic blood pressure Provider Name and Address Organization Details Last Updated DateTime 3 157.48 cm 26 kg/m2 54798.1 2 g 98 % 98 % 60 /min 122 mm[Hg] 80 mm[Hg] Sammie Bruno MARIA DE JESUS [facility] & [place] 11:18:06 Social History Question Answer Notes LastModified by [employer] Details LastModified Time Tobacco Smoking Status Former Smoker Sammie Regalado null, SHADE HORNER [facility] & [place] 08/06/2023 11:16:36 Are You Blind Or Do You Have Difficulty Seeing? No Information not available 08/06/2023 What Was The Date Of Your Most Recent Tobacco Screening? 08/04/2023 Information not available 08/06/2023 Are You Passively Exposed To Smoke? No Information not available 08/06/2023 Sex: Unknown Functional Status Question Answer Note LastModified by [employer] Details LastModified Time Do you use any illicit or recreational drugs? No Information not available 01/08/2023 What is your level of alcohol consumption? Occasional Information not available 01/08/2023 Mental Status None recorded. Family History Nothing Reported Notes:Father, uncle, cousin, nephew CABG Medical History Condition Response Eczema Y Hypertension Y Gynecological History Statement/Question Response Menses Monthly N Abnormal Pap N 07/03/2023 Date of Last Colonoscopy 05/16/2021 Date of LMP 07/03/2023 Sexually Active? Y Obstetrics History GPAL:G 0 P 0 0 0 0 Past Encounters Encounter ID Performer Location Encounter Start Date Encounter Closed Date Diagnosis/Indication Diagnosis SNOMED-CT Code Diagnosis ICD10 Code Diagnosis Note [id number] Miguel Vilchis MD [facility] [address] [place] [address] 01/08/2023 10:40:21 01/08/2023 11:29:32 Acute chest pain 113391344 R07.9 Given clinical presentati on and risk profile , will get stress test for ischemic evaluation and risk stratifica tion Essential hypertension 87458014 I10 Continue current medication . Keep log Low-salt diet < 2 gm Na/day, Regular exercise Weight loss Syncope 259207826 R55 Echo to evaluate EF, diastolic function, valves and pulmonary pressures [id number] Miguel Vilchis MD [facility] [address] [place] [address] 03/26/2023 10:50:54 03/26/2023 11:36:34 Essential hypertension 80175232 I10 Continue current medication . Keep log Low-salt diet < 2 gm Na/day, Regular exercise Weight loss Mitral vikki ve regurgitation 97107457 I34.0 mild from 01/2023 Aortic vikki ve regurgitation 70363947 I35.1 mild from 01/2023 [id number] Miguel Vilchis MD [facility] [address] [place] [address] 08/06/2023 10:59:16 08/06/2023 11:31:39 Essential hypertension 65833784 I10 Continue current medication . Keep log Low-salt diet < 2 gm Na/day, Regular exercise Weight loss Mitral vikki ve regurgitation 74153902 I34.0 mild from 01/2023 Aortic vikki ve regurgitation 51587951 I35.1 mild from 01/2023 [id number] Miguel Vilchis MD [facility] [address] [place] [address] 12/31/2023 14:11:01 12/31/2023 14:46:16 Essential hypertension 56827916 I10 Continue current medication . Keep log Low-salt diet < 2 gm Na/day, Regular exercise Weight loss Mitral vikki ve regurgitation 71020011 I34.0 mild from 01/2023. Asymptomat ic, clinically monitor. Repeat echo in 2024 Aortic vikki ve regurgitation 49792254 I35.1 mild from 01/2023. Asymptomat ic, clinically monitor. Repeat echo in 2024 Health Concerns Section Related Observation LastModified by Organization Detai ls LastModified Time None Recorded Concern Status LastModified by Organization Details LastModified Time None Recorded Advance Directives Directive None Recorded Payers Insurance Date Sequence Insurance Name Policy Number Policy Sanders Covered Member ID Sanders Member ID Guarantor Name 12/29/2023 1 [place] Krysta Mai [id number] Krysta Mai 12/29/2023 2 [place] [id number] Krysta Mai [id number] Krysta Mai Notes Date Note Type Note Provider Name and Address Organization Details Recorded Time 01/08/2023 text/html 67 F here for evaluation of cp/syncopeRefer: ER She passed out while on a flight about 1 year ago, she did not seek help. 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+microscopic colitis- 12 diarrhea/day- followed by Dr Corral Records from ER reviewedEKG 01/03/2023: Normal sinus rhythm rate of 63 TN 132 QRS 88 QTC 440Labs 01/03/2023: BUN/ creatinine 20/0.9, LFTs normal, hemoglobin/ hematocrit 15/45, platelets 303 Miguel Vilchis MD [address] [facility], [place], [address], [facility] - [place] & [place] 01/08/2023 15:52:00 03/26/2023 text/html 67 F here for fu evaluation of cp/syncopeRefer: ER Since last see she had stress/echo as noted belowNo further syncope/presyncope or chest painNo specific cardiovascular complaints today. No chest pain, shortness of breath, PND, orthopnea, peripheral edema, palpitations, presyncope, syncope +h/o endocarditis in 1985 due to UTI+microscopic colitis- 12 diarrhea/day- followed by Dr Corral Nuc stress 01/2023: Nml Echo 01/2023Normal LV size with normal function. The ejection fraction is 60-65%. Normal diastolic function.Mildly dilated left atrium.There is mild aortic regurgitation.There is mild mitral regurgitation.There is mild tricuspid regurgitation. Normal PA pressure (31 mmHg). Records from ER reviewedEKG 01/03/2023: Normal sinus rhythm rate of 63 TN 132 QRS 88 QTC 440Labs 01/03/2023: BUN/ creatinine 20/0.9, LFTs normal, hemoglobin/ hematocrit 15/45, platelets 303 Miguel Vilchis MD [address] [facility], [place], [address], [facility] & [place] 03/26/2023 11:41:48 08/06/2023 text/html 67 F here for fu evaluation of cp/syncopeRefer: ER No further syncope/presyncope or chest painNo specific cardiovascular complaints today. No chest pain, shortness of breath, PND, orthopnea, peripheral edema, palpitations, presyncope, syncope +h/o endocarditis in 1985 due to UTI+microscopic colitis- 12 diarrhea/day- followed by Dr Corral Nuc stress 01/2023: Nml EF, no ischemia Echo 01/2023Normal LV size with normal function. The ejection fraction is 60-65%. Normal diastolic function.Mildly dilated left atrium.There is mild aortic regurgitation.There is mild mitral regurgitation.There is mild tricuspid regurgitation. Normal PA pressure (31 mmHg). Records from ER reviewedEKG 01/03/2023: Normal sinus rhythm rate of 63 TN 132 QRS 88 QTC 440Labs 01/03/2023: BUN/ creatinine 20/0.9, LFTs normal, hemoglobin/ hematocrit 15/45, platelets 303 Miguel Vilchis MD [address] [place], [address], [facility] & [place] 08/06/2023 17:02:25 12/31/2023 text/html 67 F here for fu No specific cardiovascular complaints today. No chest pain, shortness of breath, PND, orthopnea, peripheral edema, palpitations, presyncope, syncope + mild AI/mild MR/mild TR on echo from 2022 -clinically monitor. Asymptomatic+h/o endocarditis in 1985 due to UTI+microscopic colitis- 12 diarrhea/day- followed by Dr Corral Nuc stress 01/2023: Nml EF, no ischemia Echo 01/2023Normal LV size with normal function. The ejection fraction is 60-65%. Normal diastolic function.Mildly dilated left atrium.There is mild aortic regurgitation.There is mild mitral regurgitation.There is mild tricuspid regurgitation. Normal PA pressure (31 mmHg). Records from ER reviewedEKG 01/03/2023: Normal sinus rhythm rate of 63 TN 132 QRS 88 QTC 440Labs 01/03/2023: BUN/ creatinine 20/0.9, LFTs normal, hemoglobin/ hematocrit 15/45, platelets 303 Miguel Vilchis MD [address], [place], [address], [facility] - [facility] - [place] & [place] 12/31/2023 15:03:17 OBGyn Episode No OBEpisode recorded.
== END 2025-02-24 23:59 | disposition home or self-care (01) ==
LOC: RAD 09:08
PROVIDERS: PCP Family Medicine; Visit Provider Family Medicine
DX: M81.0 Age-related osteoporosis without current pathological fracture (principal)
CPT/HCPCS: 77080